=== PATIENT | female | born 1935 | race Caucasian/White ===

== ENCOUNTER 2017-07-19 21:04 | Inpatient (IN) | payer MEDICARE, MEDICAID ==
[2017-07-20 00:08] LABS: ABSOLUTE LYMPHOCYTES (AUTO) 0.7 10^3/uL (0.5-4.7); ABSOLUTE MONOCYTES (AUTO) 0.1 10^3/uL (0.1-1.4); ABSOLUTE NEUT (AUTO) 7.2 10^3/uL (1.7-8.2); BASOPHILS % (AUTO) 0.5 % (0-2); EOSINOPHILS % (AUTO) 0.1 % (0-6); HEMATOCRIT 44.5 % (36.0-47.0); HEMOGLOBIN 15.3 g/dL (12.0-15.5); HGB HCT DIFFERENCE 1.4; LYMPHOCYTES % (AUTO) 8.5 % (13-45); MEAN CORPUSCULAR HEMOGLOBIN 30.8 pg (27.0-33.4); MEAN CORPUSCULAR HGB CONC 34.4 g/dL (32.0-36.0); MEAN CORPUSCULAR VOLUME 90 fl (80-97); MONOCYTES % (AUTO) 1.8 % (3-13); RED BLOOD COUNT 4.96 10^6/uL (3.72-5.28); SEGMENTED NEUTROPHILS % (AUTO) 89.1 % (42-78); WHITE BLOOD COUNT 8.1 10^3/uL (4.0-10.5)
[2017-07-20 00:21] LABS: ALANINE AMINOTRANSFERASE 160 U/L (9-52); ALBUMIN 4.6 g/dL (3.5-5.0); ALKALINE PHOSPHATASE 111 U/L (38-126); ANION GAP 14 (5-19); ASPARTATE AMINO TRANSFERASE 321 U/L (14-36); BILIRUBIN,DIRECT 0.8 mg/dL (0.0-0.4); BILIRUBIN,TOTAL 1.4 mg/dL (0.2-1.3); BLOOD UREA NITROGEN 25 mg/dL (7-20); CALCIUM 9.8 mg/dL (8.4-10.2); CARBON DIOXIDE 27 mmol/L (22-30); CHLORIDE 107 mmol/L (98-107); CREATINE KINASE 57 U/L (30-135); GLUCOSE 128 mg/dL (75-110); POTASSIUM 3.7 mmol/L (3.6-5.0); SODIUM 148.3 mmol/L (137-145); TOTAL PROTEIN 8.4 g/dL (6.3-8.2)
[2017-07-20 00:41] LABS: LIPASE 8393.8 U/L (23-300)
[2017-07-20] MEDS ORDERED: NORMAL SALINE 1000 ML 1,000 ML IV ONE (01:09)
[2017-07-20] MEDS ORDERED: MORPHINE SULFATE 10 MG/ML INJ IV PRN (01:09)
[2017-07-20] MEDS ORDERED: ONDANSETRON HCL INJ/PF 4 MG/2 ML SDV IV ONE (01:09)
--- NOTE | 2017-07-20 01:14 | ER Document Report ---
ED General - General Chief Complaint: Abdominal Pain Stated Complaint: STOMACH PAIN Time Seen by Provider: 07/19/17 23:42 Notes: Patient is an 81-year-old female with a past medical history of diabetes, hypertension, hyperlipidemia, and a known history of symptomatic cholelithiasis who presents with progressively worsening right upper quadrant and epigastric abdominal pain for the past 48 hours. She reports that she has had intermittent pain is been similar to today's presentation for the past several months but never to this degree of severity. She describes the pain as being a severe, constant, throbbing pain. She notes that any attempt eating worsens the pain. She has not been able to try anything to improve the pain. She notes multiple episodes associated of associated nonbilious vomiting. She has not had diarrhea. No chest pain or shortness of breath. She has seen a primary care doctor at the [facility] regarding this concern and been diagnosed as having symptomatically lithiasis but has refused surgery. The history and physical exam was obtained by the provider using Ukrainian. A formal hospital wet process head miller was offered to the patient and any family at the bedside at the beginning of the encounter and was declined. - Related Data Allergies/Adverse Reactions: No Known Allergies Allergy (Unverified 07/20/17 02:39) Past Medical History - General Information source: Patient - Social History Smoking Status: Never Smoker Frequency of alcohol use: None Drug Abuse: None Lives with: Family Family History: Reviewed & Not Pertinent Review of Systems - Review of Systems Notes: Constitutional: Negative for fever. HENT: Negative for sore throat. Eyes: Negative for visual changes. Cardiovascular: Negative for chest pain. Respiratory: Negative for shortness of breath. Gastrointestinal: Positive for abdominal pain and vomiting Genitourinary: Negative for dysuria. Musculoskeletal: Negative for back pain. Skin: Negative for rash. Neurological: Negative for headaches, weakness or numbness. 10 point ROS negative except as marked above and in HPI. Physical Exam - Vital signs Vitals: Temp Pulse Resp BP Pulse Ox 97.6 F 71 20 203/72 H 98 07/19/17 21:22 07/19/17 21:22 07/19/17 21:22 07/19/17 21:22 07/19/17 21:22 Interpretation: Hypertensive Notes: PHYSICAL EXAMINATION: GENERAL: Appears uncomfortable but in no acute distress HEAD: Atraumatic, normocephalic. EYES: Pupils equal round and reactive to light, extraocular movements intact, sclera anicteric, conjunctiva are normal. ENT: nares patent, oropharynx clear without exudates. Moderately dry mucous membranes. NECK: Normal range of motion, supple without lymphadenopathy LUNGS: Breath sounds clear to auscultation bilaterally and equal. No wheezes rales or rhonchi. HEART: Regular rate and rhythm without murmurs ABDOMEN: Soft, severe pain on palpation of the epigastrium and right upper quadrant otherwise no localized tenderness. No rebound or guarding. EXTREMITIES: Normal range of motion, no pitting or edema. No cyanosis. NEUROLOGICAL: No focal neurological deficits. Moves all extremities spontaneously and on command. PSYCH: Normal mood, normal affect. SKIN: Warm, Dry, normal turgor, no rashes or lesions noted. Course - Re-evaluation Re-evalutation: 07/20/17 01:14 Labs and history are most consistent with a gallstone induced pancreatitis, likely an acute cholecystitis in association with this given exam and history. Patient's labs do not at this time medially suggest an acute choledocholithiasis as there is no elevation of the bilirubin although there is a mild transaminitis which also can be seen in association with cholecystitis and pancreatitis. Awaiting formal ultrasound and then will discuss with the surgeon on-call. 07/20/17 02:17 The ultrasound does not demonstrate any evidence of an acute cholecystitis, no significant common bile duct dilation. Will consult with hospitalist for admission and the surgeon for consultation of cholecystectomy given the pancreatitis is likely gallstone induced. 07/20/17 02:47 I have spoken with Dr. Botello who is requested that Dr. Kevin the surgeon primarily admit the patient. Dr. Kevin has agreed. I have informed the patient and her family at the bedside of our findings tonight and she is agreed to admission - Vital Signs Vital signs: Temp Pulse Resp BP Pulse Ox 97.6 F 71 20 156/84 H 98 07/19/17 21:22 07/19/17 21:22 07/19/17 21:22 07/19/17 23:49 07/19/17 21:22 - Laboratory Result Diagrams: 07/19/17 23:56 07/19/17 23:56 Laboratory results interpreted by me: 07/19/17 07/19/17 07/20/17 23:56 23:56 00:49 Seg Neutrophils % 89.1 H Lymphocytes % 8.5 L Monocytes % 1.8 L Sodium 148.3 H BUN 25 H Glucose 128 H Total Bilirubin 1.4 H Direct Bilirubin 0.8 H AST 321 H ALT 160 H Total Protein 8.4 H Lipase 8393.8 H Urine Protein 30 H Urine Urobilinogen 4.0 H - Diagnostic Test Radiology reviewed: Reports reviewed Discharge - Discharge Clinical Impression: Pancreatitis due to biliary obstruction Qualifiers: Chronicity: acute Acute pancreatitis complication: unspecified Qualified Code(s ): K85.10 - Biliary acute pancreatitis without necrosis or infection Vomiting Qualifiers: Vomiting type: unspecified Vomiting Intractability: non-intractable Nausea presence: with nausea Qualified Code(s): R11.2 - Nausea with vomiting, unspecified Condition: Fair Disposition: ADMITTED INPATIENT Admitting Provider: Surgicalist - Dorita Unit Admitted: Surgical Floor
[2017-07-20 01:21] LABS: APPEARANCE,URINE CLEAR; BILIRUBIN,URINE NEGATIVE (NEGATIVE); CALCIUM OXALATE CRYSTALS,URINE FEW /HPF; GLUCOSE, URINE NEGATIVE (NEGATIVE); KETONES,URINE NEGATIVE (NEGATIVE); LEUKOCYTE ESTERASE,URINE NEGATIVE (NEGATIVE); NITRITE,URINE NEGATIVE (NEGATIVE); PROTEIN,URINE 30 mg/dL (NEGATIVE); URINE SPECIFIC GRAVITY 1.027
--- NOTE | 2017-07-20 02:14 | RADIOLOGY REPORT (SQ) ---
EXAM DESCRIPTION: U/S ABDOMEN LIMITED W/O DOP CLINICAL HISTORY: 81 years, Female, Eval cholecystitis COMPARISON: None. LIMITATIONS: None. FINDINGS: Cholelithiasis, negative sonographic Sanches's test, 0.5 cm thickness of gallbladder wall, no significant pericholecystic fluid. 1.1 cm common duct dilation; no evidence of intrahepatic ductal dilation. Pancreatic tail, distal aorta, liver partially obscured. Remaining liver, pancreas, 9.1 cm right kidney appear unremarkable. IMPRESSION: No acute findings. Cholelithiasis and 0.5 cm gallbladder wall thickness; negative sonographic Sanches's test. Nonspecific 1.1 cm common bile duct diameter; no evidence of intrahepatic ductal dilation. 2011 [employer]- All Rights Reserved
[2017-07-20] MEDS ORDERED: GLUCAGON,HUMAN RECOMB 1 MG INJ IM PRN (02:43)
[2017-07-20] MEDS ORDERED: INSULIN LISPRO 100 UNIT/ML 3 ML VIAL SUBCUT PRN (02:43)
[2017-07-20] MEDS ORDERED: DEXTROSE 40% GEL 15 GM TUBE PO PRN ×2 (02:43)
[2017-07-20] MEDS ORDERED: DEXTROSE 50%-WATER 25 GM/50 ML DISP.SYRIN IV PRN ×2 (02:43)
[2017-07-20] MEDS ORDERED: HYDRALAZINE HCL INJ/PF 20 MG/1 ML SDV IV PRN (02:44)
[2017-07-20] MEDS ORDERED: ACETAMINOPHEN 325 MG TABLET PO ONE (04:03)
--- NOTE | 2017-07-20 04:21 | PDOC H&P ---
History of Present Illness Admission Date/PCP: 07/20/17 03:39 Patient complains of: abdominal pains with N/V. History of Present Illness: ALPHONSE MALDONADO is a 81 year old female Known to have gallstone and apparently refused surgery in the past. C/O wose RUQ pains associated with N/V and chills past 48 hrs. Past Medical History Cardiac Medical History: Reports: Hyperlipidema, Hypertension Pulmonary Medical History: Reports: Chronic Obstructive Pulmonary Disease (COPD) Endocrine Medical History: Reports: Diabetes Mellitus Type 2 GI Medical History: Reports: Gastroesophageal Reflux Disease Musculoskeltal Medical History: Reports: Arthritis Past Surgical History Past Surgical History: Reports: Orthopedic Surgery Social History Lives with: Family Smoking Status: Never Smoker Family History Family History: Reviewed & Not Pertinent Parental Family History Reviewed: No Children Family History Reviewed: Yes - daughter had cholecystectomy Sibling(s) Family History Reviewed.: No Medication/Allergy Allergies/Adverse Reactions: No Known Allergies Allergy (Unverified 07/20/17 02:39) Review of Systems Constitutional: PRESENT: chills Eyes: PRESENT: other - no visual or hearing changes Nose, Mouth, and Throat: PRESENT: other - no headaches Cardiovascular: PRESENT: other - no chest pains Respiratory: PRESENT: other - no cough Gastrointestinal: PRESENT: abdominal pain, nausea, vomiting Genitourinary: PRESENT: other - no dysuria Musculoskeletal: PRESENT: back pain Integumentary: PRESENT: other - no rash Neurological: PRESENT: other - no seizures Psychiatric: PRESENT: other - no anxiety Endocrine: PRESENT: other - no polyuria Hematologic/Lymphatic: PRESENT: other - no easy bruisability Physical Exam Vital Signs: Temp Pulse Resp BP Pulse Ox 97.6 F 71 20 156/84 H 98 07/19/17 21:22 07/19/17 21:22 07/19/17 21:22 07/19/17 23:49 07/19/17 21:22 General appearance: PRESENT: mild distress Head exam: PRESENT: atraumatic Eye exam: PRESENT: conjunctiva pink Mouth exam: PRESENT: moist, tongue midline Neck exam: PRESENT: full ROM Respiratory exam: PRESENT: clear to auscultation michael Cardiovascular exam: PRESENT: RRR Pulses: PRESENT: normal radial pulses Vascular exam: PRESENT: normal capillary refill GI/Abdominal exam: PRESENT: soft, tenderness - RUQ Rectal exam: PRESENT: deferred Extremities exam: PRESENT: full ROM Musculoskeletal exam: PRESENT: ambulatory Neurological exam: PRESENT: alert, oriented to person, oriented to place, oriented to time, oriented to situation Psychiatric exam: PRESENT: appropriate affect Skin exam: PRESENT: normal color, warm Results Impressions: Abdomen Ultrasound 07/20/17 00:07 IMPRESSION: No acute findings. Cholelithiasis and 0.5 cm gallbladder wall thickness; negative sonographic Sanches's test. Nonspecific 1.1 cm common bile duct diameter; no evidence of intrahepatic ductal dilation. 2010 [employer]- All Rights Reserved Assessment & Plan - Diagnosis (1) Cholelithiasis Qualifiers: Cholelithiasis location: gallbladder Is this a current diagnosis for this admission?: Yes - Time Time Spent: 30 to 50 Minutes - Inpatient Certification Medical Necessity: Need For IV Fluids, Need for Pain Control, Need for IV Antibiotics, Need for Surgery - Plan Summary Plan Summary: Keep NPO. IV antibiotics Hydrate Medical mx c/o Hospitalist Monitor LFTs and lipase and if trending down will need lap mickey with intra-op cholangiogram
[2017-07-20] MEDS ORDERED: ONDANSETRON HCL INJ/PF 4 MG/2 ML SDV IV PRN (04:22)
[2017-07-20] MEDS ORDERED: HYDROMORPHONE HCL INJ/PF 2 MG/ML AMPULE IV PRN (04:25)
[2017-07-20] MEDS ORDERED: PIPERACILLIN/TAZOBACTAM 3.375 GM VIAL IV PRN (05:02)
[2017-07-20] MEDS ORDERED: PIPERACILLIN/TAZOBACTAM 3.375 GM VIAL IV SCH (06:00)
[2017-07-20] MEDS ORDERED: INFLUENZA ADLT QUAD (36MOS+) 2017-18 VAC 0.5 ML SYR IM PRN (07:17)
--- NOTE | 2017-07-20 07:49 | EKG REPORT ---
SEVERITY:- ABNORMAL ECG - SINUS RHYTHM POSTERIOR INFARCT : Confirmed by: Parker Contreras MD 20-Jul-2017 07:48:55
[2017-07-20] MEDS ORDERED: PIPERACILLIN SODIUM/TAZOBACTAM 3.375 GM in NORMAL SALINE 100 ML IV ONE (08:00)
[2017-07-20] MEDS: HYDROMORPHONE HCL INJ/PF 2 MG/ML AMPULE IV PRN (12:38)
[2017-07-20] MEDS: PIPERACILLIN SODIUM/TAZOBACTAM 3.375 GM in NORMAL SALINE 100 ML IV SCH ×3 (14:54→21:27)
[2017-07-20] MEDS: NORMAL SALINE 1000 ML 1,000 ML IV PRN (21:27)
[2017-07-21 05:11] LABS: ABSOLUTE LYMPHOCYTES (AUTO) 0.9 10^3/uL (0.5-4.7); ABSOLUTE MONOCYTES (AUTO) 0.5 10^3/uL (0.1-1.4); ABSOLUTE NEUT (AUTO) 8.1 10^3/uL (1.7-8.2); BASOPHILS % (AUTO) 0.4 % (0-2); EOSINOPHILS % (AUTO) 0.4 % (0-6); HEMATOCRIT 37.1 % (36.0-47.0); LYMPHOCYTES % (AUTO) 9.8 % (13-45); MEAN CORPUSCULAR HGB CONC 34.2 g/dL (32.0-36.0); MEAN CORPUSCULAR VOLUME 91 fl (80-97); MONOCYTES % (AUTO) 4.8 % (3-13); RED BLOOD COUNT 4.09 10^6/uL (3.72-5.28); RED CELL DISTRIBUTION WIDTH 13.2 % (11.5-14.0); SEGMENTED NEUTROPHILS % (AUTO) 84.6 % (42-78); WHITE BLOOD COUNT 9.6 10^3/uL (4.0-10.5)
[2017-07-21 05:18] LABS: HEMOGLOBIN 12.7 g/dL (12.0-15.5)
[2017-07-21] MEDS: PIPERACILLIN SODIUM/TAZOBACTAM 3.375 GM in NORMAL SALINE 100 ML IV SCH ×3 (05:31→22:10)
[2017-07-21] MEDS: NORMAL SALINE 1000 ML 1,000 ML IV PRN ×3 (05:31→18:05)
[2017-07-21 05:53] LABS: LIPASE 5982.2 U/L (23-300)
[2017-07-21 05:54] LABS: ALANINE AMINOTRANSFERASE 233 U/L (9-52); ALBUMIN 3.2 g/dL (3.5-5.0); ALKALINE PHOSPHATASE 104 U/L (38-126); ANION GAP 11 (5-19); ASPARTATE AMINO TRANSFERASE 173 U/L (14-36); BLOOD UREA NITROGEN 16 mg/dL (7-20); CALCIUM 8.5 mg/dL (8.4-10.2); CARBON DIOXIDE 22 mmol/L (22-30); CHLORIDE 112 mmol/L (98-107); CREATININE RESULT 0.58 mg/dL (0.52-1.25); GLUCOSE 108 mg/dL (75-110); POTASSIUM 3.4 mmol/L (3.6-5.0); SODIUM 145.4 mmol/L (137-145); TOTAL PROTEIN 6.2 g/dL (6.3-8.2)
[2017-07-21] MEDS ORDERED: MIDAZOLAM 2 MG/2 ML INJ ONE ×2 (15:53→15:54)
[2017-07-21] MEDS ORDERED: NALOXONE HCL INJ/PF 0.4 MG/1 ML SDV ONE (15:53)
[2017-07-21] MEDS ORDERED: FLUMAZENIL INJ 0.5 MG/5 ML VIAL ONE (15:54)
[2017-07-21] MEDS ORDERED: EPINEPHRINE INJ 1 MG/10 ML DISP.SYRIN ONE (15:54)
[2017-07-21] MEDS ORDERED: FENTANYL CITRATE INJ/PF 100 MCG/2 ML AMPUL ONE (15:54)
[2017-07-21] MEDS ORDERED: GLUCAGON,HUMAN RECOMB 1 MG INJ ONE (15:54)
--- NOTE | 2017-07-21 16:24 | PDOC PROGRESS REPORT ---
Subjective Progress Note for:: 07/21/17 Reason For Visit: PANCREATITIS Patient has no complaints this morning. She is speaking through her daughter as per diem interpreter. She only speaks Eritrean. Physical Exam Vital Signs: Temp Pulse Resp BP Pulse Ox 99.1 F 90 20 160/68 H 98 07/21/17 14:38 07/21/17 14:38 07/21/17 14:38 07/21/17 14:38 07/21/17 14:38 Intake & Output 07/20/17 07/21/17 07/22/17 06:59 06:59 06:59 Intake Total 0 1850 Output Total 0 Balance 0 1850 Weight 75 kg General appearance: PRESENT: no acute distress GI/Abdominal exam: PRESENT: other - Tender right upper quadrant with guarding. Abdomen is not rigid Results Laboratory Results: 07/21/17 03:44 07/21/17 03:44 07/21/17 07/21/17 03:44 03:44 WBC 9.6 RBC 4.09 Hgb 12.7 D Hct 37.1 MCV 91 MCH 31.0 MCHC 34.2 RDW 13.2 Plt Count 141 L Seg Neutrophils % 84.6 H Lymphocytes % 9.8 L Monocytes % 4.8 Eosinophils % 0.4 Basophils % 0.4 Absolute Neutrophils 8.1 Absolute Lymphocytes 0.9 Absolute Monocytes 0.5 Absolute Eosinophils 0.0 Absolute Basophils 0.0 Sodium 145.4 H Potassium 3.4 L Chloride 112 H Carbon Dioxide 22 Anion Gap 11 BUN 16 Creatinine 0.58 Est GFR ( Amer) > 60 Est GFR (Non-Af Amer) > 60 Glucose 108 Calcium 8.5 Total Bilirubin 5.0 H AST 173 H ALT 233 H Alkaline Phosphatase 104 Total Protein 6.2 L Albumin 3.2 L Lipase 5982.2 H Impressions: Abdomen Ultrasound 07/20/17 00:07 IMPRESSION: No acute findings. Cholelithiasis and 0.5 cm gallbladder wall thickness; negative sonographic Sanches's test. Nonspecific 1.1 cm common bile duct diameter; no evidence of intrahepatic ductal dilation. 2010 [employer]- All Rights Reserved Assessment & Plan - Diagnosis (1) Pancreatitis due to biliary obstruction Qualifiers: Chronicity: acute Acute pancreatitis complication: unspecified Qualified Code(s): K85.10 - Biliary acute pancreatitis without necrosis or infection Is this a current diagnosis for this admission?: Yes Plan: Patient admitted with gallstone pancreatitis. Patient's liver function studies have bumped up with a total bilirubin now at 5. The bile duct was interpreted as enlarged 1.1 cm on ultrasonography. Lipase level remains elevated but down slightly to 6000. Her impression is that the patient has retained common bile duct stone and needs intervention for stone extraction Recommendations: 1. Proceed with gastroenterology consultation, Dr. Reilly, spoken with this morning. Plans are for ERCP later this afternoon. 2. We will keep patient n.p.o. on IV fluids and intravenous antibiotics. Plan discussed with patient and her daughter.
--- NOTE | 2017-07-21 17:29 | PDOC CONSULTATION ---
Consultation Consult Date: 07/21/17 History of Present Illness Admission Date/PCP: 07/20/17 03:39 History of Present Illness: This is an 81-year-old patient was admitted on 07/20/2017 with recurrent abdominal pain, gallstones and pancreatitis. History was obtained through the patient's granddaughter. She has been having abdominal pain for 20 years but this became was 3 days ago. The pain has been constant with some nausea and chills. On admission her bilirubin was 1.4 with AST of 321 and ALT of 160. Her lipase was 8300. Today her bilirubin has increased to 5 and the lipase is still 6000. Her ultrasound showed gallstones and a 1 cm common bile duct Past Medical History Cardiac Medical History: Reports: Hyperlipidema, Hypertension Pulmonary Medical History: Reports: Chronic Obstructive Pulmonary Disease (COPD) Neurological Medical History: Denies: Seizures Endocrine Medical History: Reports: Diabetes Mellitus Type 2 GI Medical History: Reports: Gastroesophageal Reflux Disease Musculoskeltal Medical History: Reports: Arthritis Past Surgical History Past Surgical History: Reports: Orthopedic Surgery Denies: Hysterectomy Social History Lives with: Family Smoking Status: Never Smoker Frequency of Alcohol Use: None Hx Recreational Drug Use: No Drugs: None Hx Prescription Drug Abuse: No - Advance Directive Resuscitation Status: Full Code Family History Family History: Reviewed & Not Pertinent Parental Family History Reviewed: No Children Family History Reviewed: NA Sibling(s) Family History Reviewed.: NA Medication/Allergy Home Medications: Atorvastatin Calcium [Lipitor 40 mg Tablet] 40 mg PO QHS 07/20/17 Calcium Carbonate/Vitamin D3 [Calcium 600 + Vit D Tablet] 1 tab PO DAILY Insulin Glargine,Hum.rec.anlog [Lantus Insulin Inj 300 Unit/3 ml Pen] 15 unit SUBCUT QHS 07/20/17 Lisinopril/Hydrochlorothiazide [Lisinopril-Hctz 20-12.5 mg Tab] 1 tab PO DAILY 07/20/17 Sitagliptin Phos/Metformin HCl [Janumet Xr 100-1,000 mg Tablet] 1 tab PO DAILY 07/20/17 Allergies/Adverse Reactions: No Known Allergies Allergy (Unverified 07/20/17 02:39) Review of Systems All systems: reviewed and no additional remarkable complaints except as stated Physical Exam Vital Signs: Temp Pulse Resp BP Pulse Ox 98.4 F 98 15 164/75 H 95 07/21/17 16:15 07/21/17 17:15 07/21/17 17:15 07/21/17 17:15 07/21/17 17:15 Intake & Output 07/20/17 07/21/17 07/22/17 06:59 06:59 06:59 Intake Total 0 1850 400 Output Total 0 Balance 0 1850 400 Weight 75 kg Exam: General: Patient is alert and looks well. HEENT: There is no pallor but she is jaundiced. PERRLA. Oropharynx normal Respiratory: No chest deformity. No respiratory distress. Chest wall palpitation was unremarkable. Breath sounds were normal Cardiovascular: Heart sounds 1 and 2 normal with no murmurs. Abdominal: Not distended. Soft and nontender. Liver and spleen not palpable. No ascites demonstrated. Bowel sounds active. Rectal examination was deferred. Extremities: No edema Neurological: Alert and oriented x4. Grossly nonfocal. Normal speech Skin: No significant rash Psychological: Normal affect Results Laboratory Results: 07/21/17 03:44 07/21/17 03:44 07/21/17 07/21/17 03:44 03:44 WBC 9.6 RBC 4.09 Hgb 12.7 D Hct 37.1 MCV 91 MCH 31.0 MCHC 34.2 RDW 13.2 Plt Count 141 L Seg Neutrophils % 84.6 H Lymphocytes % 9.8 L Monocytes % 4.8 Eosinophils % 0.4 Basophils % 0.4 Absolute Neutrophils 8.1 Absolute Lymphocytes 0.9 Absolute Monocytes 0.5 Absolute Eosinophils 0.0 Absolute Basophils 0.0 Sodium 145.4 H Potassium 3.4 L Chloride 112 H Carbon Dioxide 22 Anion Gap 11 BUN 16 Creatinine 0.58 Est GFR ( Amer) > 60 Est GFR (Non-Af Amer) > 60 Glucose 108 Calcium 8.5 Total Bilirubin 5.0 H AST 173 H ALT 233 H Alkaline Phosphatase 104 Total Protein 6.2 L Albumin 3.2 L Lipase 5982.2 H Impressions: Abdomen Ultrasound 07/20/17 00:07 IMPRESSION: No acute findings. Cholelithiasis and 0.5 cm gallbladder wall thickness; negative sonographic Sanches's test. Nonspecific 1.1 cm common bile duct diameter; no evidence of intrahepatic ductal dilation. 2010 [employer]- All Rights Reserved Assessment & Plan - Diagnosis (1) Abnormal contrast radiography of biliary tree Is this a current diagnosis for this admission?: Yes Plan: She has gallstones, pancreatitis and dilated biliary ducts suggestive of choledocholithiasis. However LFTs has increased since admission suggesting an impacted stone. The need for an ERCP including the risks and benefits were explained to the patient through her granddaughter. She will undergo a cholecystectomy thereafter. (2) Jaundice Is this a current diagnosis for this admission?: Yes (3) Abnormal liver function test Is this a current diagnosis for this admission?: Yes (4) Cholelithiasis Qualifiers: Cholelithiasis location: gallbladder Is this a current diagnosis for this admission?: Yes (5) Pancreatitis due to biliary obstruction Qualifiers: Chronicity: acute Acute pancreatitis complication: unspecified Qualified Code(s): K85.10 - Biliary acute pancreatitis without necrosis or infection Is this a current diagnosis for this admission?: Yes
--- NOTE | 2017-07-21 17:32 | Operative Report ---
Operative Report DATE OF SURGERY: 07/21/17 Operative Report: Pre-op diagnosis: Gallstone pancreatitis and dilated biliary ducts Post-op diagnosis: 1. Common bile duct stones 2. Dilated intra-and extrahepatic ducts Surgery: ERCP with sphincterotomy and balloon stone extraction, and epinephrine injection Medications: Versed 4mg Fentanyl 100mcg IV push Tissue removed: None Procedure: After informed consent obtained from patient, the throat was sprayed with Hurricane and conscious sedation was achieved. The ERCP endoscope was then inserted into the esophagus blindly and advanced into the stomach. The duodenum was entered and the ampulla was identified. Using the triple-lumen sphincterotomy catheter the common bile duct was freely cannulated. A cholangiogram was obtained which showed possible filling defect in the distal common bile duct. The common bile duct and intrahepatic ducts did appear dilated. A good sized sphincterotomy was then performed using the endocut mode. The catheter was removed over the guidewire before a 9-12 mm balloon catheter was inserted. The balloon was inflated to 12 mm in the proximal common bile duct and pulled down the duct. 2 5-6mm yellow stones were extracted. The duct was swept one more time. A balloon occlusion cholangiogram was normal. The pancreatic duct was intentionally not cannulated. There was some bleeding post sphincterotomy controlled by injecting epinephrine 1 in 10,000. Patient tolerated procedure well. Findings Common bile duct: Dilated with 2 small stones Intrahepatic ducts: Dilated Pancreatic duct: Not cannulated Plan: Follow liver function tests. Proceed with cholecystectomy OPERATION: .
[2017-07-21] MEDS: POTASSI CL 20 MEQ/50 ML RIDER 20 MEQ/50 ML RTUPB IV SCH ×3 (17:59→22:11)
--- NOTE | 2017-07-21 18:44 | RADIOLOGY REPORT (SQ) ---
EXAM DESCRIPTION: NO CHG FLUORO; ENDO CATH/BILIARY DUCT COMPLETED DATE/TIME: 07/21/2017 5:57 pm REASON FOR STUDY: ERCP COMPARISON: None. FLUOROSCOPY TIME: 2.4 minutes. 2 images saved to PACS. TECHNIQUE: Intra-operative images acquired during surgical procedure to evaluate progress. NUMBER OF IMAGES: 2 images. LIMITATIONS: None. FINDINGS: Images acquired during ERCP. IMPRESSION: IMAGE(S) OBTAINED DURING PROCEDURE. COMMENT: Quality ID [id number]: Final reports for procedures using fluoroscopy that document radiation exp osure indices, or exposure time and number of fluorographic images (if radiation exposure indices are not available) Please consult full operative report of the attending physician for description of the procedure. TECHNICAL DOCUMENTATION: JOB ID: [id number] [employer]- All Rights Reserved
--- NOTE | 2017-07-21 18:44 | RADIOLOGY REPORT (SQ) ---
EXAM DESCRIPTION: NO CHG FLUORO; ENDO CATH/BILIARY DUCT COMPLETED DATE/TIME: 07/21/2017 5:57 pm REASON FOR STUDY: ERCP COMPARISON: None. FLUOROSCOPY TIME: 2.4 minutes. 2 images saved to PACS. TECHNIQUE: Intra-operative images acquired during surgical procedure to evaluate progress. NUMBER OF IMAGES: 2 images. LIMITATIONS: None. FINDINGS: Images acquired during ERCP. IMPRESSION: IMAGE(S) OBTAINED DURING PROCEDURE. COMMENT: Quality ID [id number]: Final reports for procedures using fluoroscopy that document radiation exp osure indices, or exposure time and number of fluorographic images (if radiation exposure indices are not available) Please consult full operative report of the attending physician for description of the procedure. TECHNICAL DOCUMENTATION: JOB ID: [id number] [employer]- All Rights Reserved
[2017-07-22] MEDS: NORMAL SALINE 1000 ML 1,000 ML IV PRN ×2 (05:27→17:28)
[2017-07-22] MEDS: PIPERACILLIN SODIUM/TAZOBACTAM 3.375 GM in NORMAL SALINE 100 ML IV SCH ×3 (05:27→21:03)
[2017-07-22 06:06] LABS: HEMATOCRIT 36.1 % (36.0-47.0); HEMOGLOBIN 12.3 g/dL (12.0-15.5); HGB HCT DIFFERENCE 0.8; MEAN CORPUSCULAR HEMOGLOBIN 30.5 pg (27.0-33.4); MEAN CORPUSCULAR HGB CONC 34.2 g/dL (32.0-36.0); MEAN CORPUSCULAR VOLUME 89 fl (80-97); RED BLOOD COUNT 4.05 10^6/uL (3.72-5.28); RED CELL DISTRIBUTION WIDTH 13.2 % (11.5-14.0); WHITE BLOOD COUNT 6.2 10^3/uL (4.0-10.5)
[2017-07-22] MEDS: HYDROMORPHONE HCL INJ/PF 2 MG/ML AMPULE IV PRN ×4 (06:26→21:03)
[2017-07-22 06:29] LABS: ALANINE AMINOTRANSFERASE 148 U/L (9-52); ALBUMIN 3.1 g/dL (3.5-5.0); ALKALINE PHOSPHATASE 125 U/L (38-126); ANION GAP 11 (5-19); ASPARTATE AMINO TRANSFERASE 63 U/L (14-36); BILIRUBIN,DIRECT 1.1 mg/dL (0.0-0.4); BILIRUBIN,TOTAL 1.7 mg/dL (0.2-1.3); BLOOD UREA NITROGEN 13 mg/dL (7-20); CALCIUM 8.3 mg/dL (8.4-10.2); CARBON DIOXIDE 18 mmol/L (22-30); CHLORIDE 113 mmol/L (98-107); CREATININE RESULT 0.51 mg/dL (0.52-1.25); GLUCOSE 103 mg/dL (75-110); POTASSIUM 3.6 mmol/L (3.6-5.0); SODIUM 142.3 mmol/L (137-145); TOTAL PROTEIN 6.1 g/dL (6.3-8.2)
[2017-07-22] MEDS ORDERED: BUPIVACAINE HCL 0.25 % INJ/PF (2.5 MG/1 ML) 30 ML VIAL ONE (07:06)
[2017-07-22] MEDS ORDERED: PROPOFOL INJ 200 MG/20 ML VIAL IV ONE (07:38)
[2017-07-22] MEDS ORDERED: FENTANYL CITRATE INJ/PF 100 MCG/2 ML AMPUL ONE ×2 (07:38→10:19)
[2017-07-22] MEDS ORDERED: MIDAZOLAM 2 MG/2 ML INJ ONE (07:38)
[2017-07-22] MEDS ORDERED: ACETAMINOPHEN 100 ML IV ONE (07:39)
[2017-07-22] MEDS ORDERED: MORPHINE SULFATE 10 MG/ML INJ ONE (07:39)
[2017-07-22] MEDS ORDERED: MEPERIDINE HCL/PF INJ 25 MG/1 ML DISP.SYRIN IV PRN (09:00)
[2017-07-22] MEDS ORDERED: PROMETHAZINE HCL INJ 25 MG/1 ML VIAL IV PRN ×2 (09:00)
[2017-07-22] MEDS ORDERED: FENTANYL CITRATE INJ/PF 100 MCG/2 ML AMPUL IV PRN ×3 (09:00)
[2017-07-22] MEDS ORDERED: MORPHINE SULFATE 10 MG/ML INJ IV PRN (09:00)
[2017-07-22] MEDS ORDERED: DIPHENHYDRAMINE HCL 50 MG/ML VIAL IV PRN (09:00)
[2017-07-22] MEDS ORDERED: FENTANYL CITRATE INJ/PF 100 MCG/2 ML AMPUL INJ ONE (09:48)
[2017-07-22] MEDS ORDERED: HYDRALAZINE HCL INJ/PF 20 MG/1 ML SDV ONE (10:20)
[2017-07-22] MEDS ORDERED: DEXAMETHASONE SOD PHOSPHATE INJ 4 MG/1 ML VIAL ONE (14:02)
[2017-07-22] MEDS ORDERED: SUCCINYLCHOLINE CHLORIDE INJ 200 MG/10 ML VIAL ONE (14:02)
[2017-07-22] MEDS ORDERED: NEOSTIGMINE METHYLSULFATE 10 MG/10 ML VIAL ONE (14:02)
[2017-07-22] MEDS ORDERED: GLYCOPYRROLATE INJ 0.4 MG/2 ML VIAL ONE (14:02)
[2017-07-22] MEDS ORDERED: ONDANSETRON HCL INJ/PF 4 MG/2 ML SDV ONE (14:02)
[2017-07-22] MEDS ORDERED: ROCURONIUM BROMIDE INJ 50 MG/5 ML VIAL IV ONE (14:03)
--- NOTE | 2017-07-22 19:42 | OPERATIVE REPORT E ---
Operative Report NAME: ALPHONSE MALDONADO : 1935 AGE: 81Y DATE OF SURGERY: 07/22/2017 ROOM: 404 PREOPERATIVE DIAGNOSIS: Acute cholecystitis. POSTOPERATIVE DIAGNOSIS: Acute cholecystitis. OPERATION: Laparoscopic cholecystectomy. SURGEON: ERICA LOZA M.D. ANESTHESIA: General. BLOOD LOSS: Less than 20 mL. SPECIMENS: Gallbladder contents. HISTORY AND INDICATIONS: The patient was admitted with cholecystitis, bilateral stones. She had ERCP done. Needed cholecystectomy because of the inflamed gallbladder and acute cholecystitis at the same time. Explained about indications, risks, benefits, and complications including but not limited to infection, bleeding, pain, and possibility of reoperation all explained to the patient and the patient's family through Albanian translation. She was take to the operating room with informed consent. DESCRIPTION OF PROCEDURE: After adequate anesthesia, in supine position, SCD boots, was given antibiotic Zosyn continued, abdomen was cleaned and draped as a sterile field. Initial access, infraumbilical area a 12 mm trocar inserted and then 5 mm trocar inserted in the epigastric area . Findings: The gallbladder is acutely inflamed, edematous, contents. Then gallbladder neck was dissected circumferentially. The cystic artery was dissected, divided, cystic duct area. Now the cystic duct was ligated with 2 applications of Endoloop and the cystic duct was ligated. Abdominal cavity, subhepatic area, diaphragmatic area irrigated and suctioned out completely and thoroughly hemostatic. Because of positive necrotic gallbladder, drain was placed in the subhepatic area and brought out complete hemostasis, the area was closed with 0 Vicryl for the fascia, 3-0 and 4-0 for the skin. Patient tolerated procedure and taken to recovery in stable condition. DICTATING PHYSICIAN: ERICA LOZA M.D. [id number] PHY#: [id number] ID: [id number] JOB#: [id number] ACCT: [id number] cc:ERCIA LOZA M.D. > MTDD
[2017-07-23] MEDS: HYDROMORPHONE HCL INJ/PF 2 MG/ML AMPULE IV PRN ×3 (01:27→11:55)
[2017-07-23 05:57] LABS: ABSOLUTE MONOCYTES (AUTO) 0.4 10^3/uL (0.1-1.4); ABSOLUTE NEUT (AUTO) 5.5 10^3/uL (1.7-8.2); BASOPHILS % (AUTO) 0.3 % (0-2); EOSINOPHILS % (AUTO) 0.1 % (0-6); HEMOGLOBIN 12.1 g/dL (12.0-15.5); HGB HCT DIFFERENCE 0.3; LYMPHOCYTES % (AUTO) 13.9 % (13-45); MEAN CORPUSCULAR HEMOGLOBIN 30.5 pg (27.0-33.4); MEAN CORPUSCULAR HGB CONC 33.6 g/dL (32.0-36.0); MEAN CORPUSCULAR VOLUME 91 fl (80-97); MONOCYTES % (AUTO) 5.9 % (3-13); RED BLOOD COUNT 3.96 10^6/uL (3.72-5.28); RED CELL DISTRIBUTION WIDTH 13.2 % (11.5-14.0); SEGMENTED NEUTROPHILS % (AUTO) 79.8 % (42-78); WHITE BLOOD COUNT 6.9 10^3/uL (4.0-10.5)
[2017-07-23] MEDS: PIPERACILLIN SODIUM/TAZOBACTAM 3.375 GM in NORMAL SALINE 100 ML IV SCH ×2 (05:59→14:22)
[2017-07-23 06:25] LABS: ALANINE AMINOTRANSFERASE 149 U/L (9-52); ALBUMIN 3.1 g/dL (3.5-5.0); ALKALINE PHOSPHATASE 101 U/L (38-126); ANION GAP 9 (5-19); ASPARTATE AMINO TRANSFERASE 82 U/L (14-36); BILIRUBIN,DIRECT 0.6 mg/dL (0.0-0.4); BILIRUBIN,TOTAL 0.9 mg/dL (0.2-1.3); BLOOD UREA NITROGEN 15 mg/dL (7-20); CALCIUM 8.7 mg/dL (8.4-10.2); CARBON DIOXIDE 22 mmol/L (22-30); CHLORIDE 111 mmol/L (98-107); GLUCOSE 121 mg/dL (75-110); POTASSIUM 3.9 mmol/L (3.6-5.0); SODIUM 141.6 mmol/L (137-145)
[2017-07-23] MEDS: NORMAL SALINE 1000 ML 1,000 ML IV PRN (11:56)
[2017-07-23] MEDS ORDERED: HYDROCODONE/ACETAMINOPHEN 5-325 MG TABLET PO PRN (13:15)
--- NOTE | 2017-07-23 14:12 | PDOC PROGRESS REPORT ---
Subjective Progress Note for:: 07/23/17 Subjective:: feeling better tolerating diet Reason For Visit: PANCREATITIS Physical Exam Vital Signs: Temp Pulse Resp BP Pulse Ox 98.8 F 86 20 152/62 H 96 07/23/17 12:33 07/23/17 12:33 07/23/17 12:33 07/23/17 12:33 07/23/17 12:33 Intake & Output 07/22/17 07/23/17 07/24/17 06:59 06:59 06:59 Intake Total 3689 4066 Output Total 860 90 Balance 3689 3206 -90 Weight 80.8 kg GI/Abdominal exam: PRESENT: other - Abdomen - soft OSEAS drain Serous Results Laboratory Results: 07/23/17 05:40 07/23/17 05:40 07/23/17 07/23/17 05:40 05:40 WBC 6.9 RBC 3.96 Hgb 12.1 Hct 36.0 MCV 91 MCH 30.5 MCHC 33.6 RDW 13.2 Plt Count 158 Seg Neutrophils % 79.8 H Lymphocytes % 13.9 Monocytes % 5.9 Eosinophils % 0.1 Basophils % 0.3 Absolute Neutrophils 5.5 Absolute Lymphocytes 1.0 Absolute Monocytes 0.4 Absolute Eosinophils 0.0 Absolute Basophils 0.0 Sodium 141.6 Potassium 3.9 Chloride 111 H Carbon Dioxide 22 Anion Gap 9 BUN 15 Creatinine 0.60 Est GFR ( Amer) > 60 Est GFR (Non-Af Amer) > 60 Glucose 121 H Calcium 8.7 Total Bilirubin 0.9 AST 82 H ALT 149 H Alkaline Phosphatase 101 Total Protein 6.0 L Albumin 3.1 L Impressions: Abdomen Ultrasound 07/20/17 00:07 IMPRESSION: No acute findings. Cholelithiasis and 0.5 cm gallbladder wall thickness; negative sonographic Sanches's test. Nonspecific 1.1 cm common bile duct diameter; no evidence of intrahepatic ductal dilation. 2011 [employer]- All Rights Reserved Catheter Placement 07/21/17 00:00 IMPRESSION: IMAGE(S) OBTAINED DURING PROCEDURE. Fluoroscopy 07/21/17 00:00 IMPRESSION: IMAGE(S) OBTAINED DURING PROCEDURE. Assessment & Plan - Plan Summary Plan Summary: s/p lap cholecystectomy doing well Advance diet May DC home FU in surgery clinic 2 weeks
[2017-07-23 16:07] VITALS: BP 158/62
== END 2017-07-23 17:11 | disposition home or self-care (01) | DRG 418 ==
LOC: ER 21:04 → EH 07-20 03:39 → 4W 07-20 05:12 → 4N 07-20 14:31
PROVIDERS: ATTEND Colon & Rectal Surgery
PROC: 0FC98ZZ Extirpation of Matter from Common Bile Duct, Via Natural or Artificial Opening Endoscopic (ICD-10-PCS; 2017-07-21 16:30)
PROC: 0FT44ZZ Resection of Gallbladder, Percutaneous Endoscopic Approach (ICD-10-PCS; principal; 2017-07-22 08:00)
DX: K85.10 Biliary acute pancreatitis without necrosis or infection (principal); K80.00 Calculus of gallbladder with acute cholecystitis without obstruction; J44.9 Chronic obstructive pulmonary disease, unspecified; E78.5 Hyperlipidemia, unspecified; I10 Essential (primary) hypertension; E11.9 Type 2 diabetes mellitus without complications; K21.9 Gastro-esophageal reflux disease without esophagitis; M19.90 Unspecified osteoarthritis, unspecified site; Z79.899 Other long term (current) drug therapy; Z79.4 Long term (current) use of insulin
CPT/HCPCS: 36415; 43262; 43264; 74328; 76705; 790; 80048; 80053; 80076; 81001; 82550; 82962; 83690; 84484; 85025; 85027; 87040; 88304; 93005; 93010; 94799; 96361; 96374; 99285; J0131; J0171; J0330; J0360; J1100; J1170; J1610; J2250; J2270; J2310; J2405; J2543; J2704; J3010; J3480; J3490; J7030

== ENCOUNTER 2020-02-29 21:41 | Inpatient (IN) | payer MEDICARE, MEDICAID ==
[2020-02-29] MEDS ORDERED: DOPAMINE HCL/DEXTROSE 5%-WATER 800 MG/250 ML RTUINJ IV PRN (21:54)
[2020-02-29] MEDS ORDERED: PIPERACILLIN/TAZOBACTAM 3.375 GM VIAL IV ONE (21:56)
--- NOTE | 2020-02-29 22:10 | ER Document Report ---
ED Respiratory Problem - General Stated Complaint: RESPIRATORY ISSUES Time Seen by Provider: 02/29/20 21:54 Mode of Arrival: Medic Information source: Relative - Granddaughter, Emergency Med Personnel Notes: 84-year-old woman presents to the emergency department with a history of seen [facility] emergency department diagnosed with a pneumonia, apparently COVID swab was performed and she was made a person of interest. EMS was called to the home tonight due to respiratory distress. Patient was found t o be very dyspneic, tripoding, nebulizer treatment was given and the patient was placed on CPAP, she continued to be in distress and appeared to be tiring, the patient was intubated. Patient was given ketamine 160 mg, 120 mg and rocuronium 160 mg. She is brought to the emergency department by EMS for bag valve ventilation being performed. Patient does not speak Cook Islander. TRAVEL OUTSIDE OF THE [place] IN LAST 30 DAYS: No - Related Data Allergies/Adverse Reactions: No Known Allergies Allergy (Unverified 07/20/17 02:39) Past Medical History - Social History Smoking Status: Never Smoker Family History: Reviewed & Not Pertinent - Past Medical History Cardiac Medical History: Reports: Hx Hypercholesterolemia, Hx Hypertension Pulmonary Medical History: Reports: Hx COPD Neurological Medical History: Denies: Hx Seizures Endocrine Medical History: Reports: Hx Diabetes Mellitus Type 2 Renal/ Medical History: Denies: Hx Peritoneal Dialysis GI Medical History: Reports: Hx Gastroesophageal Reflux Disease Musculoskeletal Medical History: Reports Hx Arthritis Past Surgical History: Reports: Hx Orthopedic Surgery. Denies: Hx Hysterectomy Review of Systems - Review of Systems -: Yes ROS unobtainable due to patient's medical condition - Patient is intuba rayna Physical Exam - Vital signs Vitals: Resp Pulse Ox 12 89 L 02/29/20 21:47 02/29/20 21:47 - Notes Notes: PHYSICAL EXAMINATION: Physical Exam: General: Frail elderly female with ET tube and bag valve ventilation being performed. HEENT: NC/AT, pupils equal round and reactive to light, MM moist,nares, neck supple Lungs: clear, no wheezing, no rales no rhonchi CVS: Tachycardic rate and rhythm no murmur gallop or rub Abdomen: Soft, active, nontender, no masses, no hepatosplenomegaly Ext: No edema, clubbing or cyanosis. Neuro: Obtunded intubated, no response to pain Skin: Intact no open lesions, no rash Course - Re-evaluation Re-evalutation: 03/01/20 00:20 Patient presents with respiratory failure, hypercapnic respiratory acidosis, chest x-ray reveals bilateral infiltrates, apparently person of interest, coronavirus test was done on 02/28/2020 at [facility]. The granddaughter describes a rapid decline with a complaint of chest tightness and heaviness and inability to take a deep breath. She states that her grandmother has never had respiratory problems, she was given an inhaler by her primary care doctor on and went to [facility] to get a chest x-ray done. She was then tested for the coronavirus. She has a history of diabetes mellitus this insulin and other medical problems. There are no advance directives, she is a full code. I have explained to the granddaughter and the patient's daughter that she is critically ill, intubated and will be cared for in the ICU. Residue Furnace Operator was contacted, states that he will see the patient in the emergency department. - Vital Signs Vital signs: Temp Pulse Resp BP Pulse Ox 98.5 F 19 180/103 H 90 L 02/29/20 22:10 02/29/20 23:41 02/29/20 23:41 03/01/20 00:40 - Laboratory Result Diagrams: 02/29/20 21:59 02/29/20 21:59 Laboratory results interpreted by me: 02/29/20 02/29/20 02/29/20 21:49 21:59 21:59 Hct 47.2 H Lymph % (Auto) 50.9 H Eos % (Auto) 7.4 H Seg Neutrophils % 36.0 L Carbonic Acid ABG pH ABG pCO2 ABG pO2 ABG HCO3 ABG Total CO2 ABG O2 Saturation Potassium 3.5 L Chloride 109 H Carbon Dioxide 20 L Glucose 350 H Lactic Acid Calcium 8.1 L NT-Pro-B Natriuret Pep 1230 H Albumin 3.4 L Urine Protein Urine Glucose (UA) 02/29/20 02/29/20 02/29/20 21:59 21:59 22:50 Hct Lymph % (Auto) Eos % (Auto) Seg Neutrophils % Carbonic Acid 2.16 H ABG pH 7.03 L* ABG pCO2 71.8 H* ABG pO2 76.6 L ABG HCO3 18.3 L ABG Total CO2 20.5 L ABG O2 Saturation 87.4 L Potassium Chloride Carbon Dioxide Glucose Lactic Acid 5.9 H Calcium NT-Pro-B Natriuret Pep Albumin Urine Protein 100 H Urine Glucose (UA) >=500 H - Diagnostic Test Radiology reviewed: Image reviewed, Reports reviewed Radiology results interpreted by me: 03/01/20 01:35 Chest x-ray: Right pleural effusion, bilateral infiltrates likely pneumonia? Viral pneumonia, pulmonary edema also noted as possible cause. - EKG Interpretation by Me EKG shows normal: Sinus rhythm - Sinus tachycardia, ST-T Waves - No acute ischemic findings. Rate: Tachycardia - Rate of 133, left bundle branch block, new compared to EKG from 2017. No acute ischemic findings. Telferner/QRS: LBBB Critical Care Note - Critical Care Note Total time excluding time spent on procedures (mins): 60 - Critical care time spent obtaining history from patient or surrogate, discussions with consultants, development of treatment plan with patient or surrogate, evaluation of patient's response to treatment, examination of patient, ordering and performing treatments and interventions, ordering and review of laboratory studies, re- evaluation of patient's condition, ordering and review of radiographic studies and review of old charts Discharge - Discharge Clinical Impression: Hypercapnic acidosis, Insulin dependent diabetes mellitus, Lactic acidosis Respiratory failure Qualifiers: Chronicity: acute Respiratory failure complication: hypoxia and hypercapnia Qualified Code(s): J96.01 - Acute respiratory failure with hypoxia Bilateral pneumonia Qualifiers: Pneumonia type: due to unspecified organism Lung location: unspecified part of lung Qualified Code(s): J18.9 - Pneumonia, unspecified organism Condition: Good Disposition: ADMITTED INPATIENT Admitting Provider: Vero (Residue Furnace Operator) Unit Admitted: ICU
[2020-02-29] MEDS ORDERED: NORMAL SALINE IV PRN (22:13)
[2020-02-29 22:27] LABS: ABSOLUTE BASOPHILS # (AUTO) 0.1 10^3/uL (0.0-0.2); ABSOLUTE EOSINOPHILS # (AUTO) 0.6 10^3/uL (0.0-0.6); ABSOLUTE LYMPHOCYTES (AUTO) 4.3 10^3/uL (0.5-4.7); ABSOLUTE MONOCYTES (AUTO) 0.4 10^3/uL (0.1-1.4); ABSOLUTE NEUT (AUTO) 3.1 10^3/uL (1.7-8.2); BASOPHILS % (AUTO) 1.2 % (0-2); EOSINOPHILS % (AUTO) 7.4 % (0-6); HEMATOCRIT 47.2 % (36.0-47.0); HEMOGLOBIN 15.2 g/dL (12.0-15.5); LYMPHOCYTES % (AUTO) 50.9 % (13-45); MEAN CORPUSCULAR HEMOGLOBIN 30.3 pg (27.0-33.4); MEAN CORPUSCULAR HGB CONC 32.2 g/dL (32.0-36.0); MEAN CORPUSCULAR VOLUME 94 fl (80-97); MONOCYTES % (AUTO) 4.5 % (3-13); PLATELET COUNT 267 10^3/uL (150-450); RED BLOOD COUNT 5.01 10^6/uL (3.72-5.28); RED CELL DISTRIBUTION WIDTH 13.7 % (11.5-14.0); TOTAL CELLS COUNTED % (AUTO) 100 %; WHITE BLOOD COUNT 8.5 10^3/uL (4.0-10.5)
[2020-02-29 22:28] LABS: ARTERIAL BLOOD H2CO3 2.16 mmol/L (1.05-1.35); ARTERIAL BLOOD HCO3 18.3 mmol/L (20-24); ARTERIAL BLOOD O2 SATURATION 87.4 % (94-98); ARTERIAL BLOOD PO2 76.6 mmHg (80-100); ARTERIAL BLOOD TOTAL CO2 20.5 mmol/L (21-25)
[2020-02-29 22:31] LABS: INTERNATIONAL RATION (INR) 1.08; PROTHROMBIN TIME 14.2 SEC (11.4-15.4)
[2020-02-29 22:32] LABS: ARTERIAL BLOOD FIO2 ROOM AIR
[2020-02-29 22:33] LABS: ARTERIAL BLOOD PCO2 71.8 mmHg (35-45); ARTERIAL BLOOD PH 7.03 (7.35-7.45)
[2020-02-29 22:38] LABS: ALBUMIN 3.4 g/dL (3.5-5.0); ALKALINE PHOSPHATASE 80 U/L (38-126); ANION GAP 10 (5-19); ASPARTATE AMINO TRANSFERASE 27 U/L (14-36); BILIRUBIN,TOTAL 0.3 mg/dL (0.2-1.3); BLOOD UREA NITROGEN 16 mg/dL (7-20); CALCIUM 8.1 mg/dL (8.4-10.2); CARBON DIOXIDE 20 mmol/L (22-30); CHLORIDE 109 mmol/L (98-107); GLUCOSE 350 mg/dL (75-110); POTASSIUM 3.5 mmol/L (3.6-5.0); TOTAL PROTEIN 6.4 g/dL (6.3-8.2)
--- NOTE | 2020-02-29 22:38 | RADIOLOGY REPORT (SQ) ---
CHEST X-RAY 1 VIEW on 02/29/2020 at 10:15 PM CLINICAL INDICATION: Intubated COMPARISON: None FINDINGS: ET tube tip is in the midthoracic trachea approximately 5.6 cm above the level of the aminah. Multiple wires are noted projecting over the chest. Heart is upper limits normal for size. There is a small right pleural effusion. There are bilateral interstitial and airspace opacities consistent with edema and/or pneumonia. Differential diagnosis would include viral infections. IMPRESSION: Right pleural effusion with bilateral opacities consistent with edema and/or pneumonia. Differential diagnosis would include viral infections.
[2020-02-29 23:32] LABS: APPEARANCE,URINE SLIGHTLY-CLOUDY; BILIRUBIN,URINE NEGATIVE (NEGATIVE); COLOR,URINE YELLOW; GLUCOSE, URINE >=500 mg/dL (NEGATIVE); KETONES,URINE NEGATIVE (NEGATIVE); PROTEIN,URINE 100 mg/dL (NEGATIVE); URINE SPECIFIC GRAVITY 1.014; UROBILINOGEN,URINE NEGATIVE mg/dL (<2.0)
[2020-02-29 23:34] LABS: CREATINE KINASE MB 1.48 ng/mL (<4.55); NT PRO BNP 1230 pg/mL (<450)
[2020-02-29 23:40] LABS: TROPONIN I < 0.012 ng/mL
[2020-03-01] MEDS: PROPOFOL 1,000 MG/100 ML INFUS..BTL IV PRN ×4 (00:52→20:40)
[2020-03-01] MEDS ORDERED: MIDAZOLAM 2 MG/2 ML INJ IV ONE (01:32)
[2020-03-01] MEDS ORDERED: DEXTROSE 40% GEL 15 GM TUBE PO PRN ×2 (02:00)
[2020-03-01] MEDS ORDERED: IPRATROPIUM/ALBUTEROL 0.5-2.5 MG/3 ML AMPUL NEB PRN (02:00)
[2020-03-01] MEDS ORDERED: DEXTROSE 50%-WATER 25 GM/50 ML DISP.SYRIN IV PRN ×3 (02:00→02:58)
[2020-03-01] MEDS ORDERED: GLUCAGON,HUMAN RECOMB 1 MG INJ SUBCUT PRN (02:00)
[2020-03-01] MEDS ORDERED: HEPARIN SOD (PORCINE) 5,000 UNIT/ML 1 ML VIAL SUBCUT ONE (02:15)
[2020-03-01] MEDS ORDERED: GLUCAGON,HUMAN RECOMB 1 MG INJ IM PRN (02:58)
--- NOTE | 2020-03-01 03:11 | CRITICAL CARE ADMISSION REPORT ---
HPI Date:: 03/01/20 Time:: 02:00 Reason for ICU Reason:: Respiratory failure, pneumonia Admission Date/Time & PCP: Admission Date/Time: 03/01/20 01:08 Primary Care Provider: HPI: 84-year-old female with a history of HTN who recently presented to an outside hospital emergency department and diagnosed with pneumonia. Screened for COVID at that time. Patient developed worsening shortness of breath this evening. EMS was called and she was subsequently intubated for severe respiratory distress. CXR in ED shows diffuse infiltrates consistent with a viral pattern. She is now being admitted to the intensive care unit for management of her respiratory failure. COVID-19 screen is still currently pending and patient will be placed on airborne precautions. - Diagnosis/Plan (1) Bilateral pneumonia Qualifiers: Pneumonia type: due to unspecified organism Lung location: unspecified part of lung Qualified Code(s): J18.9 - Pneumonia, unspecified organism Is this a current diagnosis for this admission?: Yes Plan: Start Cefapime and Vancomycin for broad spectrum coverage Obtain Sputum culture. FU CXR in am. (2) Respiratory failure Qualifiers: Chronicity: acute Respiratory failure complication: hypoxia and hypercapnia Qualified Code(s): J96.01 - Acute respiratory failure with hypoxia; J96.02 - Acute respiratory failure with hypercapnia Is this a current diagnosis for this admission?: Yes Plan: Continue mechanical ventilation Start broad-spectrum antibiotics for pneumonia Follow-up COVID screen results Past Medical History Cardiac Medical History: Reports: Hyperlipidema, Hypertension Neurological Medical History: Denies: Seizures Endocrine Medical History: Reports: Diabetes Mellitus Type 2 GI Medical History: Reports: Gastroesophageal Reflux Disease Musculoskeltal Medical History: Reports: Arthritis Past Surgical History Past Surgical History: Reports: Orthopedic Surgery Denies: Hysterectomy Social/Family History - Social History Smoking Status: Never Smoker Frequency of Alcohol Use: None Hx Recreational Drug Use: No Drugs: None Hx Prescription Drug Abuse: No - Medication/Allergies Home Medications: Insulin Glargine,Hum.rec.anlog [Lantus Insulin Inj 300 Unit/3 ml Pen] 15 unit SUBCUT QHS 07/20/17 Lisinopril/Hydrochlorothiazide [Lisinopril-Hctz 20-12.5 mg Tab] 1 tab PO DAILY 07/20/17 Sitagliptin Phos/Metformin HCl [Janumet Xr 100-1,000 mg Tablet] 1 tab PO DAILY 07/20/17 Allergies/Adverse Reactions: No Known Allergies Allergy (Unverified 07/20/17 02:39) Review of Systems ROS unobtainable: Due to endotracheal tube Physical Exam Vital Signs: Temp Pulse Resp BP Pulse Ox 98.5 F 19 180/103 H 90 L 02/29/20 22:10 02/29/20 23:41 02/29/20 23:41 03/01/20 00:40 Intake & Output 02/28/20 02/29/20 03/01/20 06:59 06:59 06:59 Intake Total 1 Balance 1 Weight 72.2 kg Weight/Height Weight 72.2 kg Height 5 ft 7 in General appearance: PRESENT: well-developed Head exam: PRESENT: atraumatic Eye exam: PRESENT: conjunctiva pink, EOMI, PERRLA Ear exam: PRESENT: normal external ear exam Mouth exam: PRESENT: dry mucosa, neck supple Neck exam: PRESENT: full ROM. ABSENT: JVD Respiratory exam: PRESENT: decreased breath sounds, rhonchi. ABSENT: wheezes Cardiovascular exam: PRESENT: RRR, +S1, +S2 Pulses: PRESENT: normal carotid pulses, +2 pedal pulses bilateral Vascular exam: PRESENT: normal capillary refill GI/Abdominal exam: PRESENT: hypoactive bowel sounds, soft. ABSENT: tenderness Extremities exam: ABSENT: pedal edema Musculoskeletal exam: PRESENT: normal inspection Neurological exam: PRESENT: CN II-XII grossly intact Skin exam: PRESENT: normal color, other - cool Tubes/Lines: PRESENT: Endotracheal Tube Laboratory/Radiographs Laboratory Results: 02/29/20 21:59 02/29/20 21:59 02/29/20 02/29/20 02/29/20 21:59 21:59 21:59 WBC 8.5 RBC 5.01 Hgb 15.2 Hct 47.2 H MCV 94 MCH 30.3 MCHC 32.2 RDW 13.7 Plt Count 267 Seg Neutrophils % 36.0 L Carbonic Acid HCO3/H2CO3 Ratio ABG pH ABG pCO2 ABG pO2 ABG HCO3 ABG O2 Saturation ABG Base Excess FiO2 Sodium 139.3 Potassium 3.5 L Chloride 109 H Carbon Dioxide 20 L Anion Gap 10 BUN 16 Creatinine 0.66 Est GFR ( Amer) > 60 Glucose 350 H Lactic Acid 5.9 H Calcium 8.1 L Total Bilirubin 0.3 AST 27 Alkaline Phosphatase 80 Total Protein 6.4 Albumin 3.4 L Urine Color Urine Appearance Urine pH Ur Specific [place] Urine Protein Urine Glucose (UA) Urine Ketones Urine Blood Urine RBC (Auto) 02/29/20 02/29/20 21:59 22:50 WBC RBC Hgb Hct MCV MCH MCHC RDW Plt Count Seg Neutrophils % Carbonic Acid 2.16 H HCO3/H2CO3 Ratio 8:1 ABG pH 7.03 L* ABG pCO2 71.8 H* ABG pO2 76.6 L ABG HCO3 18.3 L ABG O2 Saturation 87.4 L ABG Base Excess -14.0 FiO2 ROOM AIR Sodium Potassium Chloride Carbon Dioxide Anion Gap BUN Creatinine Est GFR ( Amer) Glucose Lactic Acid Calcium Total Bilirubin AST Alkaline Phosphatase Total Protein Albumin Urine Color YELLOW Urine Appearance SLIGHTLY-CLOUDY Urine pH 6.0 Ur Specific [place] 1.014 Urine Protein 100 H Urine Glucose (UA) >=500 H Urine Ketones NEGATIVE Urine Blood NEGATIVE Urine RBC (Auto) 4 02/29/20 02/29/20 21:49 21:59 Creatine Kinase 81 CK-MB (CK-2) 1.48 Troponin I < 0.012 NT-Pro-B Natriuret Pep 1230 H Impressions: Chest X-Ray 02/29/20 21:55 IMPRESSION: Right pleural effusion with bilateral opacities consistent with edema and/or pneumonia. Differential diagnosis would include viral infections. All labs, radiographs, diagnostic studies and EKGs were personally reviewed: Yes In addition, reports of radiographic and diagnostic studies were read: Yes Critical Time Critical Time (minutes): 65 -: The care of a critically ill patient is dynamic. This note represents a static moment in the admission process. Orders and treatments may be given simultaneously and urgently, and time is not high school admissions representative of the treatment process. This patient requires Critical Care secondary to life threatening organ or limb dysfunction. Without Critical Care services, the patient is at risk for increased mortality and morbidity.
[2020-03-01] MEDS ORDERED: VANCOMYCIN HCL 0 MG in DEXTROSE 5%-WATER 250 ML IV NR (03:15)
[2020-03-01] MEDS ORDERED: RINGERS SOLUTION,LACTATED 1,000 ML IV PRN ×3 (03:32→17:09)
[2020-03-01] MEDS ORDERED: PIPERACILLIN/TAZOBACTAM 3.375 GM VIAL IV PRN (03:36)
[2020-03-01] MEDS ORDERED: VANCOMYCIN HCL INJ 1000 MG VIAL IV PRN (03:41)
[2020-03-01] MEDS ORDERED: VANCOMYCIN HCL 1,000 MG in DEXTROSE 5%-WATER 250 ML IV ONE (03:45)
[2020-03-01] MEDS ORDERED: INSULIN REG, HUMAN 100 UNIT/ML 3 ML VIAL (PYX) SUBCUT ONE (03:45)
[2020-03-01 05:24] LABS: HEMATOCRIT 43.4 % (36.0-47.0); HEMOGLOBIN 14.5 g/dL (12.0-15.5); MEAN CORPUSCULAR HEMOGLOBIN 30.4 pg (27.0-33.4); MEAN CORPUSCULAR HGB CONC 33.3 g/dL (32.0-36.0); MEAN CORPUSCULAR VOLUME 91 fl (80-97); PLATELET COUNT 217 10^3/uL (150-450); RED BLOOD COUNT 4.76 10^6/uL (3.72-5.28); RED CELL DISTRIBUTION WIDTH 13.4 % (11.5-14.0); WHITE BLOOD COUNT 15.2 10^3/uL (4.0-10.5)
[2020-03-01 05:43] LABS: ANION GAP 10 (5-19); BLOOD UREA NITROGEN 16 mg/dL (7-20); CALCIUM 7.7 mg/dL (8.4-10.2); CARBON DIOXIDE 17 mmol/L (22-30); CHLORIDE 110 mmol/L (98-107); GLUCOSE 317 mg/dL (75-110); POTASSIUM 3.7 mmol/L (3.6-5.0)
[2020-03-01] MEDS: PIPERACILLIN SODIUM/TAZOBACTAM 3.375 GM in NORMAL SALINE 100 ML IV SCH ×3 (05:48→17:40)
[2020-03-01 08:56] LABS: ARTERIAL BLOOD BASE EXCESS -6.1 mmol/L; ARTERIAL BLOOD H2CO3 0.81 mmol/L (1.05-1.35); ARTERIAL BLOOD HCO3 16.7 mmol/L (20-24); ARTERIAL BLOOD O2 SATURATION 91.1 % (94-98); ARTERIAL BLOOD PCO2 26.9 mmHg (35-45); ARTERIAL BLOOD PH 7.41 (7.35-7.45); ARTERIAL BLOOD PO2 58.3 mmHg (80-100); ARTERIAL BLOOD TOTAL CO2 17.5 mmol/L (21-25)
[2020-03-01 08:58] LABS: ARTERIAL BLOOD FIO2 40%
--- NOTE | 2020-03-01 09:00 | RADIOLOGY REPORT (SQ) ---
EXAM DESCRIPTION: CHEST SINGLE VIEW IMAGES COMPLETED DATE/TIME: 03/01/2020 6:24 am REASON FOR STUDY: Respiratory Failure COMPARISON: 02/29/2020. EXAM PARAMETERS: NUMBER OF VIEWS: One view. TECHNIQUE: Single frontal radiographic view of the chest acquired. RADIATION DOSE: NA LIMITATIONS: None. FINDINGS: LUNGS AND PLEURA: Diffuse bilateral airspace disease and pleural effusions. Improved aera tion. MEDIASTINUM AND HILAR STRUCTURES: No masses. Contour normal. HEART AND VASCULAR STRUCTURES: Heart normal in size. Normal vasculature. BONES: No acute findings. HARDWARE: Stable endotracheal tube. Nasogastric tube with the tip in stomach. OTHER: No other significant finding. IMPRESSION: IMPROVED AERATION. TECHNICAL DOCUMENTATION: JOB ID: [id number] 2010 [employer]- All Rights Reserved Reading location - IP/workstation name: [email or web address]
[2020-03-01] MEDS: INSULIN REG, HUMAN 100 UNIT/ML 3 ML VIAL (PYX) SUBCUT SCH ×3 (12:06→20:23)
--- NOTE | 2020-03-01 12:24 | EKG REPORT ---
SEVERITY:- ABNORMAL ECG - SINUS RHYTHM LEFT BUNDLE BRANCH BLOCK : Confirmed by: Hannah Kasper MD 01-Mar-2020 12:23:45
[2020-03-01 16:23] LABS: ARTERIAL BLOOD BASE EXCESS -2.7 mmol/L; ARTERIAL BLOOD FIO2 40%; ARTERIAL BLOOD H2CO3 1.12 mmol/L (1.05-1.35); ARTERIAL BLOOD HCO3 21.9 mmol/L (20-24); ARTERIAL BLOOD PCO2 37.3 mmHg (35-45); ARTERIAL BLOOD PH 7.39 (7.35-7.45); ARTERIAL BLOOD PO2 60.4 mmHg (80-100)
[2020-03-01] MEDS: HEPARIN SOD (PORCINE) 5,000 UNIT/ML 1 ML VIAL SUBCUT SCH ×2 (16:28→21:28)
[2020-03-01] MEDS: VANCOMYCIN HCL 750 MG in DEXTROSE 5%-WATER 250 ML IV SCH (18:20)
[2020-03-02] MEDS: PIPERACILLIN SODIUM/TAZOBACTAM 3.375 GM in NORMAL SALINE 100 ML IV SCH ×5 (00:31→23:26)
[2020-03-02] MEDS ORDERED: RINGERS SOLUTION,LACTATED 500 ML IV ONE (01:22)
[2020-03-02] MEDS ORDERED: FUROSEMIDE INJ/PF 40 MG/4 ML SDV IV ONE ×2 (01:22→14:45)
[2020-03-02] MEDS: INSULIN REG, HUMAN 100 UNIT/ML 3 ML VIAL (PYX) SUBCUT SCH ×4 (02:03→22:18)
[2020-03-02] MEDS: PROPOFOL 1,000 MG/100 ML INFUS..BTL IV PRN (04:09)
[2020-03-02 04:46] LABS: HEMATOCRIT 43.8 % (36.0-47.0); HEMOGLOBIN 15.1 g/dL (12.0-15.5); MEAN CORPUSCULAR HEMOGLOBIN 30.6 pg (27.0-33.4); MEAN CORPUSCULAR HGB CONC 34.4 g/dL (32.0-36.0); MEAN CORPUSCULAR VOLUME 89 fl (80-97); PLATELET COUNT 188 10^3/uL (150-450); RED BLOOD COUNT 4.92 10^6/uL (3.72-5.28); RED CELL DISTRIBUTION WIDTH 13.4 % (11.5-14.0); WHITE BLOOD COUNT 8.7 10^3/uL (4.0-10.5)
[2020-03-02 05:11] LABS: ANION GAP 7 (5-19); BLOOD UREA NITROGEN 12 mg/dL (7-20); CALCIUM 8.6 mg/dL (8.4-10.2); CARBON DIOXIDE 24 mmol/L (22-30); CHLORIDE 106 mmol/L (98-107); GLUCOSE 188 mg/dL (75-110); POTASSIUM 3.1 mmol/L (3.6-5.0)
[2020-03-02] MEDS ORDERED: POTASSI CL 20 MEQ/50 ML RIDER 40 MEQ/100 ML RTUPB IV ONE (05:22)
[2020-03-02] MEDS ORDERED: MAGNESIUM SULFATE/D5W 2 GM/200 ML RTUPB IV ONE (05:22)
[2020-03-02] MEDS ORDERED: MORPHINE SULFATE 10 MG/ML INJ ONE (05:26)
[2020-03-02] MEDS ORDERED: NITROGLYCERIN 2% OINTMENT 1 GM PACKET ONE (05:27)
[2020-03-02] MEDS ORDERED: NITROGLYCERIN 2% OINTMENT 1 GM PACKET TP ONE (05:45)
[2020-03-02 05:54] LABS: CREATINE KINASE MB 2.73 ng/mL (<4.55)
[2020-03-02 06:00] LABS: ABSOLUTE LYMPHOCYTES# (MANUAL) 1.3 10^3/uL (0.5-4.7); ABSOLUTE MONOCYTES # (MANUAL) 0.4 10^3/uL (0.1-1.4); BASOPHILS % (MANUAL) 0 % (0-2); EOSINOPHILS % (MANUAL) 0 % (0-6); LYMPHOCYTES % (MANUAL) 15 % (13-45); MONOCYTES % (MANUAL) 5 % (3-13); SEGMENTED NEUTROPHILS % (MAN) 80 % (42-78); TOTAL CELLS COUNTED 100
[2020-03-02] MEDS ORDERED: MORPHINE SULFATE 10 MG/ML INJ IV ONE (06:00)
[2020-03-02 06:02] LABS: OVALOCYTES SLIGHT; PLATELET COMMENT ADEQUATE; POIKILOCYTOSIS SLIGHT
[2020-03-02 06:05] LABS: TROPONIN I 0.57 ng/mL
[2020-03-02] MEDS: MAGNESIUM SULFATE 1 GM/D5W 100 ML IV SCH ×2 (06:31→06:32)
[2020-03-02] MEDS: POTASSIUM CHLORIDE 20 MEQ/50 ML RTU IV SCH ×2 (06:34→09:07)
[2020-03-02] MEDS: HEPARIN SOD (PORCINE) 5,000 UNIT/ML 1 ML VIAL SUBCUT SCH ×3 (06:40→22:14)
[2020-03-02] MEDS: VANCOMYCIN HCL 750 MG in DEXTROSE 5%-WATER 250 ML IV SCH (06:44)
--- NOTE | 2020-03-02 07:23 | EKG REPORT ---
SEVERITY:- ABNORMAL ECG - SINUS RHYTHM VENTRICULAR BIGEMINY LVH WITH SECONDARY REPOLARIZATION ABNORMALITY PROBABLE ANTERIOR INFARCT, ACUTE NONSPECIFIC INTRAVENTRICULAR CONDUCTION DELAY : Confirmed by: Parker Contreras MD 02-Mar-2020 07:22:59
--- NOTE | 2020-03-02 08:20 | RADIOLOGY REPORT (SQ) ---
EXAM DESCRIPTION: CHEST SINGLE VIEW IMAGES COMPLETED DATE/TIME: 03/02/2020 6:06 am REASON FOR STUDY: Respiratory Failure COMPARISON: 03/01/2020 NUMBER OF VIEWS: One view. TECHNIQUE: Single frontal radiographic image of the chest acquired. LIMITATIONS: None. FINDINGS: LUNGS AND PLEURA: Suspect slight increase in bilateral pleural effusions. No other signif icant interval change. MEDIASTINUM AND HILAR STRUCTURES: Stable heart size and mediastinal structures. HEART AND VASCULAR STRUCTURES: Stable appearance. SUPPORT DEVICES: Appropriate location without change. BONES: No acute findings. OTHER: No other significant finding. IMPRESSION: STABLE APPEARANCE OF THE CHEST. SUPPORT DEVICES UNCHANGED. TECHNICAL DOCUMENTATION: JOB ID: [id number] 2010 [employer]- All Rights Reserved Reading location - IP/workstation name: [email or web address]
[2020-03-02] MEDS: MAGNESIUM SULFATE/D5W 1 GM/100 ML RTUPB IV SCH ×2 (09:09→11:43)
[2020-03-02 09:15] LABS: ARTERIAL BLOOD BASE EXCESS -0.2 mmol/L; ARTERIAL BLOOD FIO2 40%; ARTERIAL BLOOD H2CO3 1.14 mmol/L (1.05-1.35); ARTERIAL BLOOD O2 SATURATION 90.6 % (94-98); ARTERIAL BLOOD PCO2 37.9 mmHg (35-45); ARTERIAL BLOOD PH 7.42 (7.35-7.45); ARTERIAL BLOOD PO2 57.6 mmHg (80-100); ARTERIAL BLOOD TOTAL CO2 25.1 mmol/L (21-25)
[2020-03-02] MEDS ORDERED: AMIODARONE HCL 150 MG in DEXTROSE 5%-WATER 100 ML IV ONE (09:15)
[2020-03-02] MEDS: DEXTROSE 5%-WATER 500 ML with AMIODARONE HCL 900 MG IV PRN ×2 (09:45)
--- NOTE | 2020-03-02 12:02 | PDOC CRITICAL CARE PROG REPORT ---
General Date:: 03/02/20 ICU Day:: 2 Hospital Day:: 2 Resuscitation Status: Full Code Events in the past 12 to 24 Hours:: Extubated Review of systems relevant to events:: Pulmonary cardiac Reason for ICU Addmission:: Respiratory failure, pneumonia, intubated. - Medications: Medications reviewed and adjusted accordingly: Yes Vasopressors:: None Sedation:: None Physical Exam Vital Signs: Temp Pulse Resp BP Pulse Ox 100.2 F 95 22 H 131/83 H 91 L 03/02/20 01:55 03/02/20 10:44 03/02/20 10:44 03/02/20 10:44 03/02/20 10:44 Intake & Output 03/01/20 03/02/20 03/03/20 06:59 06:59 06:59 Intake Total 2511 1929 258 Output Total 670 2325 200 Balance 1841 -396 58 Weight 72.3 kg 74.6 kg Weight/Height Weight 74.6 kg Height 5 ft General appearance: PRESENT: no acute distress, cooperative, other - Hampered by language barrier. Head exam: PRESENT: atraumatic, normocephalic Eye exam: PRESENT: conjunctiva pink, EOMI, PERRLA. ABSENT: scleral icterus Ear exam: PRESENT: normal external ear exam Mouth exam: PRESENT: moist, tongue midline Respiratory exam: PRESENT: clear to auscultation michael. ABSENT: rales, rhonchi, wheezes Cardiovascular exam: PRESENT: RRR. ABSENT: diastolic murmur, rubs, systolic murmur GI/Abdominal exam: PRESENT: normal bowel sounds, soft. ABSENT: distended, g uarding, mass, organolmegaly, rebound, tenderness Rectal exam: PRESENT: deferred Gentrourinary exam: PRESENT: indwelling catheter Musculoskeletal exam: PRESENT: normal inspection Neurological exam: PRESENT: alert, awake, CN II-XII grossly intact, other - Seems approppriate but speaks mostly [place]ian Skin exam: PRESENT: dry, intact, warm. ABSENT: cyanosis, rash Laboratory/Radiographs Laboratory Results: 03/02/20 04:20 03/02/20 04:20 03/01/20 03/02/20 03/02/20 16:00 04:20 04:20 WBC 8.7 RBC 4.92 Hgb 15.1 Hct 43.8 MCV 89 MCH 30.6 MCHC 34.4 RDW 13.4 Plt Count 188 Seg Neutrophils % Not Reportable Carbonic Acid 1.12 HCO3/H2CO3 Ratio 19:1 ABG pH 7.39 ABG pCO2 37.3 ABG pO2 60.4 L ABG HCO3 21.9 ABG O2 Saturation 91.0 L ABG Base Excess -2.7 FiO2 40% Sodium 136.6 L Potassium 3.1 L Chloride 106 Carbon Dioxide 24 Anion Gap 7 BUN 12 Creatinine 0.57 Est GFR ( Amer) > 60 Glucose 188 H Calcium 8.6 Magnesium 1.6 03/02/20 03/02/20 04:20 08:55 WBC Cancelled RBC Cancelled Hgb Cancelled Hct Cancelled MCV Cancelled MCH Cancelled MCHC Cancelled RDW Cancelled Plt Count Cancelled Seg Neutrophils % Cancelled Carbonic Acid 1.14 HCO3/H2CO3 Ratio 21:1 ABG pH 7.42 ABG pCO2 37.9 ABG pO2 57.6 L ABG HCO3 24.0 ABG O2 Saturation 90.6 L ABG Base Excess -0.2 FiO2 40% Sodium Potassium Chloride Carbon Dioxide Anion Gap BUN Creatinine Est GFR ( Amer) Glucose Calcium Magnesium 02/29/20 02/29/20 03/01/20 21:49 21:59 05:07 Creatine Kinase 81 CK-MB (CK-2) 1.48 Troponin I < 0.012 NT-Pro-B Natriuret Pep 1230 H 3320 H 03/02/20 03/02/20 03/02/20 04:20 04:20 04:20 Creatine Kinase 157 H CK-MB (CK-2) 2.73 Troponin I 0.570 NT-Pro-B Natriuret Pep 5920 H Impressions: Chest X-Ray 03/02/20 06:00 IMPRESSION: STABLE APPEARANCE OF THE CHEST. SUPPORT DEVICES UNCHANGED. EKG: NSR, bigeminy. Possible anterior infarct. All labs, radiographs, diagnostic studies and EKGs were personally reviewed: Yes In addition, reports of radiographic and diagnostic studies were read: Yes Assessment and Plan - Diagnosis (1) AMI anterior wall Is this a current diagnosis for this admission?: Yes Plan: This is possible given her troponin, EKG and episode of VT. Will keep K > 4, check echocardiogram, consult Dr. Garzon. (2) Acute respiratory failure Qualifiers: Respiratory failure complication: hypoxia Qualified Code(s): J96.01 - Acute respiratory failure with hypoxia Is this a current diagnosis for this admission?: Yes Plan: Said to be hypoxic at home where she was intubated. Not hypoxic now and extubated. (3) Ventricular tachycardia Is this a current diagnosis for this admission?: Yes Plan: One documented episode when hypokalemic. May be AR. On amiodarone. Plan Summary: To see Dr. Garzon. Treat as though she is AR for now. Critical Time Critical Time (minutes): 35 Level of Care: ICU Anticipated discharge: Home with Homehealth Anticipated DC Timeframe: Other -: 1. The care of a critical patient is a dynamic process. This note is a security systems sales representative synopsis but static in nature. The timeframe for treatments given in order is not necessarily the actual time these treatments may have been done. 2. This patient requires critical care secondary to ongoing requirements for therapy not offered or safe outside the critical care environment. Transfer to a lower level of care will result in altered life or limb morbidity and mortality. 3. Multidisciplinary rounds completed. 4. ABCDE bundle addressed.
[2020-03-02] MEDS ORDERED: NITROGLYCERIN 5 MG (0.2 MG/HR) PATCH.TD24 TD SCH (12:15)
[2020-03-02 13:38] LABS: ANION GAP 7 (5-19); BLOOD UREA NITROGEN 10 mg/dL (7-20); CALCIUM 8.2 mg/dL (8.4-10.2); CARBON DIOXIDE 24 mmol/L (22-30); CHLORIDE 104 mmol/L (98-107); GLUCOSE 238 mg/dL (75-110); POTASSIUM 3.5 mmol/L (3.6-5.0)
[2020-03-02] MEDS ORDERED: METOPROLOL TARTRATE PF/INJ 5 MG/5 ML SDV IV PRN (14:14)
[2020-03-02] MEDS: FUROSEMIDE INJ/PF 20 MG/2 ML SDV ONE ×2 (14:19)
[2020-03-02] MEDS ORDERED: METOPROLOL TARTRATE PF/INJ 5 MG/5 ML SDV IV ONE (14:45)
[2020-03-02] MEDS: NITROGLYCERIN 2% OINTMENT 1 GM PACKET TP SCH ×3 (15:24→23:38)
[2020-03-02] MEDS ORDERED: DIGOXIN INJ 0.5 MG/2 ML AMPULE IV ONE (15:30)
[2020-03-02] MEDS: ENALAPRILAT DIHYDRATE INJ/PF 1.25 MG/1 ML SDV IV SCH (15:44)
--- NOTE | 2020-03-02 17:09 | EKG REPORT ---
SEVERITY:- ABNORMAL ECG - SINUS TACHYCARDIA LEFT BUNDLE BRANCH BLOCK : Confirmed by: Parker Contreras MD 02-Mar-2020 17:09:19
[2020-03-02] MEDS: ACETAMINOPHEN 325 MG TABLET PO PRN (19:48)
[2020-03-02 20:38] LABS: BLOOD UREA NITROGEN 10 mg/dL (7-20); CALCIUM 8.3 mg/dL (8.4-10.2); CHLORIDE 101 mmol/L (98-107); GLUCOSE 194 mg/dL (75-110); PHOSPHORUS 1.9 mg/dL (2.5-4.5)
[2020-03-02 20:43] LABS: CARBON DIOXIDE 30 mmol/L (22-30)
[2020-03-02 20:57] LABS: ANION GAP 5 (5-19)
--- NOTE | 2020-03-02 21:32 | PDOC CONSULTATION ---
Consultation-Blank Consultation: CARDIOLOGY CONSULTATION by Dr. Hannah Kasper. Patient seen at 2 PM on 03/02/2020. 60 minutes spent on the patient with more than 50% of time spent in direct patient care. REASON FOR CONSULTATION: Cardiology assessment for possible anterior wall FL. CONSULT REQUESTING PHYSICIAN: Dr. Pham, highway maintenance supervisor. HISTORY OF PRESENT ILLNESS: Note patient speaks a little bit of broken Greek. History obtained from the chart and also from the patient's granddaughter who does speak Greek. As per discussion with the patient's granddaughter the patient had developed shortness of breath and cough and some fever last Monday. She was seen in her primary care doctor's office and had a COVID 19 testing done which was said to be negative. The patient was also treated for pneumonia. Subsequently the patient symptoms worsened and the patient was intubated by EMS. She had a cardioversion for some unknown reason. Most likely ventricular tachycardia. Subsequently the patient was found to have have nonsustained ventricular tachycardia with hypokalemia the patient was started on IV amiodarone and the potassium has been drip was replaced. Subsequent to that there was no further ectopy. After extubation the patient was found to be short of breath. It was initially thought that due to the EKG reading by the reading dobie man that the patient had anterior wall FL. This also due to the fact that the patient's troponin was elevated. But it looks like troponin elevation secondary to supply demand mismatch. The patient at present is on a face tent and denies chest pain she speaks a little bit of Greek she does complain of shortness of breath. As per the granddaughter the patient prior to last week has been very sedentary and hence had no major symptoms of PND orthopnea or leg edema. There is no prior history of FL or anginal symptoms or heart failure symptoms. Or signs. She has a history of hypertension diabetes mellitus and hyper lipidemia. Not much else history is obtained. There is definitely no prior history of syncope. I am unable to locate the EMS's notes on this patient when they brought her to [facility]. Past Medical History Cardiac Medical History: Reports: Hyperlipidema, Hypertension Neurological Medical History: Denies: Seizures Endocrine Medical History: Reports: Diabetes Mellitus Type 2 GI Medical History: Reports: Gastroesophageal Reflux Disease Musculoskeltal Medical History: Reports: Arthritis Past Surgical History Past Surgical History: Reports: Orthopedic Surgery Denies: Hysterectomy Social/Family History - Social History Smoking Status: Never Smoker Frequency of Alcohol Use: None Hx Recreational Drug Use: No Drugs: None Hx Prescription Drug Abuse: No - Medication/Allergies Home Medications: Insulin Glargine,Hum.rec.anlog [Lantus Insulin Inj 300 Unit/3 ml Pen] 15 unit SUBCUT QHS 07/20/17 Lisinopril/Hydrochlorothiazide [Lisinopril-Hctz 20-12.5 mg Tab] 1 tab PO DAILY 07/20/17 Sitagliptin Phos/Metformin HCl [Janumet Xr 100-1,000 mg Tablet] 1 tab PO DAILY 07/20/17 Allergies/Adverse Reactions: No Known Allergies Allergy (Unverified 07/20/17 02:39) RESUSCITATION STATUS: Patient is a full code. The patient's daughter is her surrogate healthcare decision maker Current Medications Generic Name Dose Route Start Last Admin Trade Name Freq PRN Reason Stop Dose Admin Acetaminophen 650 mg 03/02/20 18:17 03/02/20 19:48 Tylenol 325 Mg Tablet PO 04/01/20 18:16 650 mg Q4HP PRN Administration FEVER >101 Albuterol/Ipratropium 3 ml 03/01/20 02:00 Duoneb 3 Ml Ampul NEB 03/31/20 01:59 [id number] PRN SHORTNESS OF BREATH Dextrose 12.5 gm 03/01/20 02:00 Dextrose Inj 50% Syringe (25 Gm/50 Ml) IV 03/31/20 01:59 PRN PRN FOR BG 50-69 IN ALERT PATIENT Protocol Dextrose 25 gm 03/01/20 02:00 Dextrose Inj 50% Syringe (25 Gm/50 Ml) IV 03/31/20 01:59 PRN PRN See Label Comments Protocol Enalaprilat 2.5 mg 03/03/20 03:00 Vasotec Inj/Pf 1.25 Mg/1 Ml Sdv IV 04/02/20 02:59 Q6A MEG Furosemide 40 mg 03/02/20 22:00 03/02/20 22:14 Lasix Inj/Pf 40 Mg/4 Ml Sdv IV 04/01/20 21:59 40 mg Q8 MEG Administration Glucagon 1 mg 03/01/20 02:58 Glucagen Inj 1 Mg Vial IM 03/31/20 02:57 PRN PRN Evaluate for BG < 70 Protocol Glucose 15 gm 03/01/20 02:00 Glutose 40% Gel 15 Gm Tube PO 03/31/20 01:59 PRN PRN For BG 50-69 in Alert Patient Protocol Glucose 30 gm 03/01/20 02:00 Glutose 40% Gel 15 Gm Tube PO 03/31/20 01:59 PRN PRN FOR BG < 50 IN ALERT PATIENT Protocol Heparin Sodium (Porcine) 5,000 unit 03/01/20 14:00 03/02/20 22:14 Heparin Inj 5,000 Units/Ml 1 Ml Vial SUBCUT 03/31/20 13:59 5,000 unit Q8 MEG Administration Sodium Chloride 2,160 mls @ 0 mls/hr 02/29/20 22:13 03/01/20 00:32 Nacl 0.9% 1000 Ml Iv Soln IV 03/30/20 22:12 Infused CONTINUOUS PRN Infusion THIS MED IS NOT "PRN" Wide Open Piperacillin Sod/Tazobactam 100 mls @ 200 mls/hr 03/01/20 06:00 03/02/20 17:42 Sod 3.375 gm/ Sodium Chloride IV 03/08/20 05:59 200 mls/hr Q6 MEG 200 mls/hr Administration Amiodarone HCl 900 mg/ 500 mls @ 0 mls/hr 03/02/20 09:15 03/02/20 15:45 Dextrose IV 03/05/20 09:14 0.5 mg/min CONTINUOUS PRN 16.67 mls/hr THIS MED IS NOT "PRN" Titration Protocol Per Protocol Potassium Chloride/Water 20 meq in 50 mls @ 25 mls/hr 03/02/20 21:45 03/02/20 22:17 Potassium Chloride Phil 20 Meq/50 Ml IV 03/03/20 01:44 25 mls/hr Q2H MEG 25 mls/hr Administration Insulin Human Regular 0 - 12 unit 03/01/20 09:00 03/02/20 22:18 Humulin R (Pyxis) Insulin 100 Unit/Ml 3ml SUBCUT 03/31/20 08:59 2 unit Q6A MEG Administration Protocol Metoprolol Tartrate 5 mg 03/02/20 14:14 Lopressor Inj/Pf 5 Mg/5 Ml Sdv IV 04/01/20 14:13 Q3HP PRN HR > 100 Nitroglycerin 1 gm 03/02/20 15:15 03/02/20 17:40 Nitrol 2% Ointment 1gm Packet TP 04/01/20 15:14 1 gm Q6 MEG Administration Potassium Chloride 20 meq 03/02/20 22:00 03/02/20 21:42 Klor-Con 10 Meq Tablet Er PO 04/01/20 21:59 Not Given Q8 MEG Sodium Chloride 2.5 ml 02/29/20 22:00 03/02/20 21:43 Saline Flush 2.5 Ml Monoject Prefil Syrin IV 03/30/20 21:59 Not Given Q8 MEG Sodium Chloride 2.5 ml 03/01/20 06:00 03/02/20 21:43 Saline Flush 2.5 Ml Monoject Prefil Syrin IV 03/31/20 05:59 Not Given Q8 MEG Discontinued Medications Generic Name Dose Route Start Last Admin Trade Name Freq PRN Reason Stop Dose Admin Dextrose 25 gm 03/01/20 02:58 Dextrose Inj 50% Syringe (25 Gm/50 Ml) IV 03/31/20 02:57 PRN PRN PER PROTOCOL Protocol Digoxin 0.25 mg 03/02/20 15:30 03/02/20 17:37 Lanoxin Inj 0.5 Mg/2 Ml Ampule IV 03/02/20 15:31 0.25 mg NOW ONE Administration Enalaprilat 1.25 mg 03/02/20 15:15 03/02/20 15:44 Vasotec Inj/Pf 1.25 Mg/1 Ml Sdv IV 04/01/20 15:14 1.25 mg Q6A MEG Administration Enalaprilat Confirm 03/02/20 21:58 03/02/20 22:16 Vasotec Inj/Pf 1.25 Mg/1 Ml Sdv Administered 03/02/20 21:59 Not Given Dose 1.25 mg IV .STK-MED ONE Furosemide 40 mg 03/02/20 01:22 03/02/20 01:59 Lasix Inj/Pf 40 Mg/4 Ml Sdv IV 03/02/20 01:23 40 mg NOW ONE Administration Furosemide 40 mg 03/02/20 14:45 03/02/20 14:19 Lasix Inj/Pf 40 Mg/4 Ml Sdv IV 03/02/20 14:46 40 mg NOW ONE Administration Furosemide Confirm 03/02/20 14:08 03/02/20 14:19 Lasix Inj/Pf 20 Mg/2 Ml Sdv Administered 03/02/20 14:09 Not Given Dose 20 mg .ROUTE .STK-MED ONE Glucagon 1 mg 03/01/20 02:00 Glucagen Inj 1 Mg Vial SUBCUT 03/31/20 01:59 PRN PRN Evaluate for BG < 70 Protocol Heparin Sodium (Porcine) 5,000 unit 03/01/20 02:15 03/01/20 03:52 Heparin Inj 5,000 Units/Ml 1 Ml Vial SUBCUT 03/01/20 02:16 5,000 unit NOW ONE Administration Dopamine HCl/Dextrose 800 mg in 250 mls @ 0 mls/hr 02/29/20 21:54 Dopamine Rtu 800 Mg-D5w 250 Ml (Adult) Premix IV 03/30/20 21:53 CONTINUOUS PRN THIS MED IS NOT "PRN" Protocol 5 MCG/KG/MIN Propofol 1,000 mg in 100 mls @ 2.166 mls/hr 03/01/20 00:48 03/02/20 10:15 Diprivan Rtu 1000 Mg/100 Ml Inf.Bottle IV 03/31/20 00:47 0 mcg/kg/min CONTINUOUS PRN 0 mls/hr THIS MED IS NOT "PRN" Titration Protocol 5 MCG/KG/MIN Lactated Ringer's 1,000 mls @ 20 mls/hr 03/01/20 03:32 Lactated Ringers 1000 Ml Iv Soln IV 03/31/20 03:31 CONTINUOUS PRN THIS MED IS NOT "PRN" Vancomycin HCl 1,000 mg/ 250 mls @ 166.667 mls/hr 03/01/20 03:45 03/01/20 05:21 Dextrose IV 03/01/20 05:14 Infused NOW ONE Infusion Lactated Ringer's 1,000 mls @ 125 mls/hr 03/01/20 06:39 Lactated Ringers 1000 Ml Iv Soln IV 03/31/20 03:31 CONTINUOUS PRN THIS MED IS NOT "PRN" Vancomycin HCl 750 mg/ 250 mls @ 166.667 mls/hr 03/01/20 18:00 03/02/20 06:44 Dextrose IV 03/08/20 17:59 500.01 mg/hr Q12A MEG 166.67 mls/hr Administration Lactated Ringer's 1,000 mls @ 999 mls/hr 03/01/20 17:09 03/01/20 17:50 Lactated Ringers 1000 Ml Iv Soln IV 03/31/20 17:08 Infused CONTINUOUS PRN Infusion THIS MED IS NOT "PRN" Lactated Ringer's 500 mls @ 0 mls/hr 03/02/20 01:22 03/02/20 01:53 Lactated Ringers 1000 Ml Iv Soln IV 03/02/20 01:23 999 mls/hr BOLUS ONE Administration Wide Open Potassium Chloride/Water Confirm 03/02/20 05:22 03/02/20 06:41 Potassium Chloride Phil 20 Meq/50 Ml Administered 03/02/20 05:23 10 meq/hr Dose 25 mls/hr 40 meq in 100 mls @ ud Administration IV .STK-MED ONE Magnesium Sulfate/Dextrose Confirm 03/02/20 05:22 03/02/20 06:35 Magnesium Sulfate Rtu-D5w 1 Gm/100 Ml Premix Administered 03/02/20 05:23 Not Given Dose 2 gm in 200 mls @ ud IV .STK-MED ONE Potassium Chloride/Water 20 meq in 50 mls @ 25 mls/hr 03/02/20 05:45 03/02/20 09:07 Potassium Chloride Phil 20 Meq/50 Ml IV 03/02/20 09:44 25 mls/hr Q2H MEG 25 mls/hr Administration Magnesium Sulfate/Dextrose 1 gm in 100 mls @ 100 mls/hr 03/02/20 05:45 03/02/20 06:32 Magnesium Sulfate Rtu-D5w 1 Gm/100 Ml Premix IV 03/02/20 07:44 100 mls/hr Q1H MEG 100 mls/hr Administration Magnesium Sulfate/Dextrose 1 gm in 100 mls @ 100 mls/hr 03/02/20 09:00 11:43 Magnesium Sulfate Rtu-D5w 1 Gm/100 Ml Premix IV 03/02/20 10:59 100 ml/hr Q1H MEG 100 mls/hr Administration Amiodarone HCl 150 mg/ 100 mls @ 600 mls/hr 03/02/20 09:15 03/02/20 09:19 Dextrose IV 03/02/20 09:24 600 mls/hr NOW ONE Administration Protocol Potassium Chloride/Water Confirm 03/02/20 21:40 03/02/20 22:15 Potassium Chloride Phil 20 Meq/50 Ml Administered 03/02/20 21:41 Not Given Dose 20 meq in 50 mls @ ud IV .STK-MED ONE Insulin Human Regular 0 - 12 unit 03/01/20 03:45 03/01/20 04:04 Humulin R (Pyxis) Insulin 100 Unit/Ml 3ml SUBCUT 03/01/20 03:46 6 unit NOW ONE Administration Protocol Metoprolol Tartrate 5 mg 03/02/20 14:45 03/02/20 15:37 Lopressor Inj/Pf 5 Mg/5 Ml Sdv IV 03/02/20 14:46 5 mg NOW ONE Administration Midazolam HCl 4 mg 03/01/20 01:32 03/01/20 01:37 Versed 2 Mg/2 Ml Inj IV 03/01/20 01:33 4 mg NOW ONE Administration Morphine Sulfate Confirm 03/02/20 05:26 03/02/20 06:40 Morphine 10 Mg/Ml Inj Administered 03/02/20 05:27 Not Given Dose 10 mg .ROUTE .STK-MED ONE Morphine Sulfate 4 mg 03/02/20 06:00 03/02/20 05:30 Morphine 10 Mg/Ml Inj IV 03/02/20 06:01 4 mg NOW ONE Administration Nitroglycerin Confirm 03/02/20 05:27 03/02/20 06:39 Nitrol 2% Ointment 1gm Packet Administered 03/02/20 05:28 Not Given Dose 1 gm .ROUTE .STK-MED ONE Nitroglycerin 1 gm 03/02/20 05:45 03/02/20 06:39 Nitrol 2% Ointment 1gm Packet TP 03/02/20 05:46 1 gm NOW ONE Administration Nitroglycerin 1 each 03/02/20 12:15 03/02/20 14:02 Nitro-Dur 5 Mg (0.2 Mg/Hr) Transdermal Patch TD 04/01/20 12:14 Not Given DAILY MEG Piperacillin Sod/Tazobactam Sod 3.375 gm 02/29/20 21:56 02/29/20 22:21 Zosyn Inj 3.375 Gm Vial IV 02/29/20 21:57 3.375 gm IVBAG (ED) ONE Administration Piperacillin Sod/Tazobactam Sod 3.375 gm 03/01/20 03:36 Zosyn Inj 3.375 Gm Vial IV 03/01/20 09:00 ASDIR PRN Potassium Chloride 40 meq 03/02/20 21:49 03/02/20 22:16 Klor-Con 10 Meq Tablet Er PO 03/02/20 21:50 Not Given NOW ONE Vancomycin HCl 1,000 mg 03/01/20 03:41 Vancocin Inj 1000 Mg Vial IV 03/01/20 09:00 ASDIR PRN REVIEW OF SYSTEMS: : Patient not able to give much of a review of symptoms. But as per the gra nddaughter the patient has been very sedentary. The patient started becoming sick with shortness of breath and diagnosed with pneumonia. There is some fever but no rigors or chills. In the emergency room the patient had a temperature. There is constitutional: There is generalized fatigue and weakness. EARS: There is no hearing loss. There is no tinnitus. EYES: There is no visual disturbance s. There is no symptoms suggestive amblyopia. NOSE: No history of hayfever. THROAT: No history of odynophagia or dysphagia. MOUTH: No history of altered taste sensation. No bleeding from mouth. LUNGS: No history of asthma or COPD. Recent symptoms of shortness of breath. With symptoms suggestive of PND orthopnea. There is no wheezing. There is cough nonproductive sputum. There is no hemoptysis. HEART: There is no prior history of [place] no chest pain or discomfort. There is shortness of breath. No prior history of cardiac arrhythmia. The patient was noted this admission to have nonsustained ventricular tachycardia due to hypokalemia most likely. At present on amiodarone there is no ectopy. ENDOCRINE: History of diabetes mellitus dau-dixyrmd-boahftgvo type II. No polydipsia polyuria. No history of heat or cold intolerance. RENAL: No history of chronic kidney disease. No symptoms of UTI. LOCAL ANNOUNCER: No history of TIA CVA no severe headaches migraines or seizures. PSYCHIATRIC: No history of anxiety or depression. No suicidal ideation. No homicidal ideation. PHYSICAL EXAMINATION: The patient is well-built. Does appear to be in moderate respiratory distress and appears to be short of breath in spite of her face tent. Selected Entries 0803/02/20 03/02/20 14:01 14:44 15:42 Core 101.3 F H 101.3 F H Temperature Heart Rate ( 125 Monitors) Respiratory 35 H Rate Blood Pressure 172/102 H Blood Pressure 125 Mean O2 Sat by Pulse 92 93 Oximetry 03/02/20 03/02/20 15:43 15:44 Core 101.3 F H Temperature Heart Rate ( 91 Monitors) Respiratory 28 H Rate Blood Pressure 140/85 H Blood Pressure 103 Mean O2 Sat by Pulse 93 91 L Oximetry Patient on a face tent with FiO2 50% HEAD: Is atraumatic normocephalic. EYES: Pupils are equal round regular reactive to light and accommodation. Extraocular movements are normal. There is no conjunctival pallor. EARS: Tympanic membranes are intact. External auditory canals are clear. NOSE: There is no deviated nasal septum. There is no inflammation nasal mucous membrane. MOUTH: Mucous membranes of mouth are moist. Tongue is moist. There is no ulcers. THROAT: There is no redness or oropharynx there is no exudates. SKIN: There is no skin rashes. There is no petechia or ecchymosis. There is no skin lesions. NECK: Is supple. There is JVD present. Carotids are equal there is no bruits. There is no lymphadenopathy. There is no goiter. There is no accessory muscle respiration use. Trachea central. LUNGS: There is absent breath sounds left greater than right basis. There is dullness in this areas. This area is there is tubular [bronchial] breath sounds. There is scattered rhonchi. There is no wheezing. Just above the area of dullness is a few bibasilar rales. HEART S1-S2 is heard. There is no S4 gallop. There is S3 gallop present. There is murmur of mild aortic stenosis. A2 is preserved. There is murmur of mitral regurgitation and tricuspid regurgitation present. There is no rub. ABDOMEN: Soft. Nontender there is no paraspinal megaly. Bowel sounds are well heard. EXTREMITIES: Femorals are well felt. Leg pulses well felt. There is no femoral bruits. There is no cyanosis or clubbing. There is no pedal edema. There is no DVT or cellulitis. LOCAL ANNOUNCER: Patient is conscious awake alert seems to be oriented x3 although language is a barrier. She has no focal deficits. PSYCHIATRIC: The patient does appear to be slightly anxious but does not appear to be agitated. Labs- Entire Visit 02/29/20 02/29/20 02/29/20 21:49 21:59 21:59 WBC 8.5 RBC 5.01 Hgb 15.2 Hct 47.2 H MCV 94 MCH 30.3 MCHC 32.2 RDW 13.7 Plt Count 267 Lymph % (Auto) 50.9 H [place] % (Auto) 4.5 Eos % (Auto) 7.4 H Baso % (Auto) 1.2 Absolute Neuts (auto) 3.1 Absolute Lymphs (auto) 4.3 Absolute Monos (auto) 0.4 Absolute Eos (auto) 0.6 Absolute Basos (auto) 0.1 Total Counted Seg Neutrophils % 36.0 L Seg Neuts % (Manual) Lymphocytes % (Manual) Monocytes % (Manual) Eosinophils % (Manual) Basophils % (Manual) Abs Neuts (Manual) Abs Lymphs (Manual) Abs Monocytes (Manual) Absolute Eos (Manual) Abs Basophils (Manual) Platelet Estimate Platelet Comment Poikilocytosis Ovalocytes PT 14.2 INR 1.08 Carbonic Acid HCO3/H2CO3 Ratio ABG pH ABG pCO2 ABG pO2 ABG HCO3 ABG Total CO2 ABG O2 Saturation ABG Base Excess FiO2 Sodium Potassium Chloride Carbon Dioxide Anion Gap BUN Creatinine Est GFR ( Amer) Est GFR (MDRD) Non-Af Glucose POC Glucose Lactic Acid Calcium Phosphorus Magnesium Total Bilirubin Direct Bilirubin Neonat Total Bilirubin Neonat Direct Bilirubin Neonat Indirect Bili AST ALT Alkaline Phosphatase Creatine Kinase CK-MB (CK-2) 1.48 Troponin I < 0.012 C-Reactive Protein NT-Pro-B Natriuret Pep 1230 H Total Protein Albumin Urine Color Urine Appearance Urine pH Ur Specific [place] Urine Protein Urine Glucose (UA) Urine Ketones Urine Blood Urine Nitrite (Reflex) Urine Bilirubin Urine Urobilinogen Leukocyte Esterase Rfl Urine RBC (Auto) U Hyaline Cast (Auto) Urine WBC (Reflex) Squamous Epi Cells Auto Urine Mucus (Auto) Urine Ascorbic Acid Slides for Path Review 02/29/20 02/29/20 02/29/20 21:59 21:59 21:59 WBC RBC Hgb Hct MCV MCH MCHC RDW Plt Count Lymph % (Auto) [place] % (Auto) Eos % (Auto) Baso % (Auto) Absolute Neuts (auto) Absolute Lymphs (auto) Absolute Monos (auto) Absolute Eos (auto) Absolute Basos (auto) Total Counted Seg Neutrophils % Seg Neuts % (Manual) Lymphocytes % (Manual) Monocytes % (Manual) Eosinophils % (Manual) Basophils % (Manual) Abs Neuts (Manual) Abs Lymphs (Manual) Abs Monocytes (Manual) Absolute Eos (Manual) Abs Basophils (Manual) Platelet Estimate Platelet Comment Poikilocytosis Ovalocytes PT INR Carbonic Acid 2.16 H HCO3/H2CO3 Ratio 8:1 ABG pH 7.03 L* ABG pCO2 71.8 H* ABG pO2 76.6 L ABG HCO3 18.3 L ABG Total CO2 20.5 L ABG O2 Saturation 87.4 L ABG Base Excess -14.0 FiO2 ROOM AIR Sodium 139.3 Potassium 3.5 L Chloride 109 H Carbon Dioxide 20 L Anion Gap 10 BUN 16 Creatinine 0.66 Est GFR ( Amer) > 60 Est GFR (MDRD) Non-Af > 60 Glucose 350 H POC Glucose Lactic Acid 5.9 H Calcium 8.1 L Phosphorus Magnesium Total Bilirubin 0.3 Direct Bilirubin 0.0 Neonat Total Bilirubin Not Reportable Neonat Direct Bilirubin Not Reportable Neonat Indirect Bili Not Reportable AST 27 ALT 16 Alkaline Phosphatase 80 Creatine Kinase CK-MB (CK-2) Troponin I C-Reactive Protein NT-Pro-B Natriuret Pep Total Protein 6.4 Albumin 3.4 L Urine Color Urine Appearance Urine pH Ur Specific [place] Urine Protein Urine Glucose (UA) Urine Ketones Urine Blood Urine Nitrite (Reflex) Urine Bilirubin Urine Urobilinogen Leukocyte Esterase Rfl Urine RBC (Auto) U Hyaline Cast (Auto) Urine WBC (Reflex) Squamous Epi Cells Auto Urine Mucus (Auto) Urine Ascorbic Acid Slides for Path Review 02/29/20 02/29/20 03/01/20 21:59 22:50 02:22 WBC RBC Hgb Hct MCV MCH MCHC RDW Plt Count Lymph % (Auto) [place] % (Auto) Eos % (Auto) Baso % (Auto) Absolute Neuts (auto) Absolute Lymphs (auto) Absolute Monos (auto) Absolute Eos (auto) Absolute Basos (auto) Total Counted Seg Neutrophils % Seg Neuts % (Manual) Lymphocytes % (Manual) Monocytes % (Manual) Eosinophils % (Manual) Basophils % (Manual) Abs Neuts (Manual) Abs Lymphs (Manual) Abs Monocytes (Manual) Absolute Eos (Manual) Abs Basophils (Manual) Platelet Estimate Platelet Comment Poikilocytosis Ovalocytes PT INR Carbonic Acid HCO3/H2CO3 Ratio ABG pH ABG pCO2 ABG pO2 ABG HCO3 ABG Total CO2 ABG O2 Saturation ABG Base Excess FiO2 Sodium Potassium Chloride Carbon Dioxide Anion Gap BUN Creatinine Est GFR ( Amer) Est GFR (MDRD) Non-Af Glucose POC Glucose Lactic Acid 2.6 H Calcium Phosphorus Magnesium Total Bilirubin Direct Bilirubin Neonat Total Bilirubin Neonat Direct Bilirubin Neonat Indirect Bili AST ALT Alkaline Phosphatase Creatine Kinase 81 CK-MB (CK-2) Troponin I C-Reactive Protein NT-Pro-B Natriuret Pep Total Protein Albumin Urine Color YELLOW Urine Appearance SLIGHTLY-CLOUDY Urine pH 6.0 Ur Specific [place] 1.014 Urine Protein 100 H Urine Glucose (UA) >=500 H Urine Ketones NEGATIVE Urine Blood NEGATIVE Urine Nitrite (Reflex) NEGATIVE Urine Bilirubin NEGATIVE Urine Urobilinogen NEGATIVE Leukocyte Esterase Rfl NEGATIVE Urine RBC (Auto) 4 U Hyaline Cast (Auto) 5 Urine WBC (Reflex) 5 Squamous Epi Cells Auto <1 Urine Mucus (Auto) RARE Urine Ascorbic Acid NEGATIVE Slides for Path Review 03/01/20 03/01/20 03/01/20 03:57 05:07 05:07 WBC 15.2 H RBC 4.76 Hgb 14.5 Hct 43.4 MCV 91 MCH 30.4 MCHC 33.3 RDW 13.4 Plt Count 217 Lymph % (Auto) [place] % (Auto) Eos % (Auto) Baso % (Auto) Absolute Neuts (auto) Absolute Lymphs (auto) Absolute Monos (auto) Absolute Eos (auto) Absolute Basos (auto) Total Counted Seg Neutrophils % Seg Neuts % (Manual) Lymphocytes % (Manual) Monocytes % (Manual) Eosinophils % (Manual) Basophils % (Manual) Abs Neuts (Manual) Abs Lymphs (Manual) Abs Monocytes (Manual) Absolute Eos (Manual) Abs Basophils (Manual) Platelet Estimate Platelet Comment Poikilocytosis Ovalocytes PT INR Carbonic Acid HCO3/H2CO3 Ratio ABG pH ABG pCO2 ABG pO2 ABG HCO3 ABG Total CO2 ABG O2 Saturation ABG Base Excess FiO2 Sodium Potassium Chloride Carbon Dioxide Anion Gap BUN Creatinine Est GFR ( Amer) Est GFR (MDRD) Non-Af Glucose POC Glucose 259 H Lactic Acid 3.2 H Calcium Phosphorus Magnesium Total Bilirubin Direct Bilirubin Neonat Total Bilirubin Neonat Direct Bilirubin Neonat Indirect Bili AST ALT Alkaline Phosphatase Creatine Kinase CK-MB (CK-2) Troponin I C-Reactive Protein NT-Pro-B Natriuret Pep Total Protein Albumin Urine Color Urine Appearance Urine pH Ur Specific [place] Urine Protein Urine Glucose (UA) Urine Ketones Urine Blood Urine Nitrite (Reflex) Urine Bilirubin Urine Urobilinogen Leukocyte Esterase Rfl Urine RBC (Auto) U Hyaline Cast (Auto) Urine WBC (Reflex) Squamous Epi Cells Auto Urine Mucus (Auto) Urine Ascorbic Acid Slides for Path Review 03/01/20 03/01/20 03/01/20 05:07 05:07 08:35 WBC RBC Hgb Hct MCV MCH MCHC RDW Plt Count Lymph % (Auto) [place] % (Auto) Eos % (Auto) Baso % (Auto) Absolute Neuts (auto) Absolute Lymphs (auto) Absolute Monos (auto) Absolute Eos (auto) Absolute Basos (auto) Total Counted Seg Neutrophils % Seg Neuts % (Manual) Lymphocytes % (Manual) Monocytes % (Manual) Eosinophils % (Manual) Basophils % (Manual) Abs Neuts (Manual) Abs Lymphs (Manual) Abs Monocytes (Manual) Absolute Eos (Manual) Abs Basophils (Manual) Platelet Estimate Platelet Comment Poikilocytosis Ovalocytes PT INR Carbonic Acid 0.81 L HCO3/H2CO3 Ratio 20:1 ABG pH 7.41 ABG pCO2 26.9 L ABG pO2 58.3 L ABG HCO3 16.7 L ABG Total CO2 17.5 L ABG O2 Saturation 91.1 L ABG Base Excess -6.1 FiO2 40% Sodium 136.7 L Potassium 3.7 Chloride 110 H Carbon Dioxide 17 L Anion Gap 10 BUN 16 Creatinine 0.53 Est GFR ( Amer) > 60 Est GFR (MDRD) Non-Af > 60 Glucose 317 H POC Glucose Lactic Acid Calcium 7.7 L Phosphorus Magnesium 1.7 Total Bilirubin Direct Bilirubin Neonat Total Bilirubin Neonat Direct Bilirubin Neonat Indirect Bili AST ALT Alkaline Phosphatase Creatine Kinase CK-MB (CK-2) Troponin I C-Reactive Protein NT-Pro-B Natriuret Pep 3320 H Total Protein Albumin Urine Color Urine Appearance Urine pH Ur Specific [place] Urine Protein Urine Glucose (UA) Urine Ketones Urine Blood Urine Nitrite (Reflex) Urine Bilirubin Urine Urobilinogen Leukocyte Esterase Rfl Urine RBC (Auto) U Hyaline Cast (Auto) Urine WBC (Reflex) Squamous Epi Cells Auto Urine Mucus (Auto) Urine Ascorbic Acid Slides for Path Review 03/01/20 03/01/20 03/01/20 12:05 16:00 18:48 WBC RBC Hgb Hct MCV MCH MCHC RDW Plt Count Lymph % (Auto) [place] % (Auto) Eos % (Auto) Baso % (Auto) Absolute Neuts (auto) Absolute Lymphs (auto) Absolute Monos (auto) Absolute Eos (auto) Absolute Basos (auto) Total Counted Seg Neutrophils % Seg Neuts % (Manual) Lymphocytes % (Manual) Monocytes % (Manual) Eosinophils % (Manual) Basophils % (Manual) Abs Neuts (Manual) Abs Lymphs (Manual) Abs Monocytes (Manual) Absolute Eos (Manual) Abs Basophils (Manual) Platelet Estimate Platelet Comment Poikilocytosis Ovalocytes PT INR Carbonic Acid 1.12 HCO3/H2CO3 Ratio 19:1 ABG pH 7.39 ABG pCO2 37.3 ABG pO2 60.4 L ABG HCO3 21.9 ABG Total CO2 23.0 ABG O2 Saturation 91.0 L ABG Base Excess -2.7 FiO2 40% Sodium Potassium Chloride Carbon Dioxide Anion Gap BUN Creatinine Est GFR ( Amer) Est GFR (MDRD) Non-Af Glucose POC Glucose 202 H 125 H Lactic Acid Calcium Phosphorus Magnesium Total Bilirubin Direct Bilirubin Neonat Total Bilirubin Neonat Direct Bilirubin Neonat Indirect Bili AST ALT Alkaline Phosphatase Creatine Kinase CK-MB (CK-2) Troponin I C-Reactive Protein NT-Pro-B Natriuret Pep Total Protein Albumin Urine Color Urine Appearance Urine pH Ur Specific [place] Urine Protein Urine Glucose (UA) Urine Ketones Urine Blood Urine Nitrite (Reflex) Urine Bilirubin Urine Urobilinogen Leukocyte Esterase Rfl Urine RBC (Auto) U Hyaline Cast (Auto) Urine WBC (Reflex) Squamous Epi Cells Auto Urine Mucus (Auto) Urine Ascorbic Acid Slides for Path Review 03/01/20 03/02/20 03/02/20 20:22 00:10 04:20 WBC 8.7 RBC 4.92 Hgb 15.1 Hct 43.8 MCV 89 MCH 30.6 MCHC 34.4 RDW 13.4 Plt Count 188 Lymph % (Auto) Not Reportable [place] % (Auto) Not Reportable Eos % (Auto) Not Reportable Baso % (Auto) Not Reportable Absolute Neuts (auto) Not Reportable Absolute Lymphs (auto) Not Reportable Absolute Monos (auto) Not Reportable Absolute Eos (auto) Not Reportable Absolute Basos (auto) Not Reportable Total Counted 100 Seg Neutrophils % Not Reportable Seg Neuts % (Manual) 80 H Lymphocytes % (Manual) 15 Monocytes % (Manual) 5 Eosinophils % (Manual) 0 Basophils % (Manual) 0 Abs Neuts (Manual) 7.0 Abs Lymphs (Manual) 1.3 Abs Monocytes (Manual) 0.4 Absolute Eos (Manual) 0.0 Abs Basophils (Manual) 0.0 Platelet Estimate Platelet Comment ADEQUATE Poikilocytosis SLIGHT Ovalocytes SLIGHT PT INR Carbonic Acid HCO3/H2CO3 Ratio ABG pH ABG pCO2 ABG pO2 ABG HCO3 ABG Total CO2 ABG O2 Saturation ABG Base Excess FiO2 Sodium Potassium Chloride Carbon Dioxide Anion Gap BUN Creatinine Est GFR ( Amer) Est GFR (MDRD) Non-Af Glucose POC Glucose 144 H 147 H Lactic Acid Calcium Phosphorus Magnesium Total Bilirubin Direct Bilirubin Neonat Total Bilirubin Neonat Direct Bilirubin Neonat Indirect Bili AST ALT Alkaline Phosphatase Creatine Kinase CK-MB (CK-2) Troponin I C-Reactive Protein NT-Pro-B Natriuret Pep Total Protein Albumin Urine Color Urine Appearance Urine pH Ur Specific [place] Urine Protein Urine Glucose (UA) Urine Ketones Urine Blood Urine Nitrite (Reflex) Urine Bilirubin Urine Urobilinogen Leukocyte Esterase Rfl Urine RBC (Auto) U Hyaline Cast (Auto) Urine WBC (Reflex) Squamous Epi Cells Auto Urine Mucus (Auto) Urine Ascorbic Acid Slides for Path Review 03/02/20 03/02/20 03/02/20 04:20 04:20 04:20 WBC Cancelled RBC Cancelled Hgb Cancelled Hct Cancelled MCV Cancelled MCH Cancelled MCHC Cancelled RDW Cancelled Plt Count Cancelled Lymph % (Auto) Cancelled [place] % (Auto) Cancelled Eos % (Auto) Cancelled Baso % (Auto) Cancelled Absolute Neuts (auto) Cancelled Absolute Lymphs (auto) Cancelled Absolute Monos (auto) Cancelled Absolute Eos (auto) Cancelled Absolute Basos (auto) Cancelled Total Counted Seg Neutrophils % Cancelled Seg Neuts % (Manual) Lymphocytes % (Manual) Monocytes % (Manual) Eosinophils % (Manual) Basophils % (Manual) Abs Neuts (Manual) Abs Lymphs (Manual) Abs Monocytes (Manual) Absolute Eos (Manual) Abs Basophils (Manual) Platelet Estimate Cancelled Platelet Comment Poikilocytosis Ovalocytes PT INR Carbonic Acid HCO3/H2CO3 Ratio ABG pH ABG pCO2 ABG pO2 ABG HCO3 ABG Total CO2 ABG O2 Saturation ABG Base Excess FiO2 Sodium 136.6 L Potassium 3.1 L Chloride 106 Carbon Dioxide 24 Anion Gap 7 BUN 12 Creatinine 0.57 Est GFR ( Amer) > 60 Est GFR (MDRD) Non-Af > 60 Glucose 188 H POC Glucose Lactic Acid Calcium 8.6 Phosphorus Magnesium 1.6 Total Bilirubin Direct Bilirubin Neonat Total Bilirubin Neonat Direct Bilirubin Neonat Indirect Bili AST ALT Alkaline Phosphatase Creatine Kinase CK-MB (CK-2) Troponin I C-Reactive Protein NT-Pro-B Natriuret Pep 5920 H Total Protein Albumin Urine Color Urine Appearance Urine pH Ur Specific [place] Urine Protein Urine Glucose (UA) Urine Ketones Urine Blood Urine Nitrite (Reflex) Urine Bilirubin Urine Urobilinogen Leukocyte Esterase Rfl Urine RBC (Auto) U Hyaline Cast (Auto) Urine WBC (Reflex) Squamous Epi Cells Auto Urine Mucus (Auto) Urine Ascorbic Acid Slides for Path Review Cancelled 03/02/20 03/02/20 03/02/20 04:20 04:20 05:16 WBC RBC Hgb Hct MCV MCH MCHC RDW Plt Count Lymph % (Auto) [place] % (Auto) Eos % (Auto) Baso % (Auto) Absolute Neuts (auto) Absolute Lymphs (auto) Absolute Monos (auto) Absolute Eos (auto) Absolute Basos (auto) Total Counted Seg Neutrophils % Seg Neuts % (Manual) Lymphocytes % (Manual) Monocytes % (Manual) Eosinophils % (Manual) Basophils % (Manual) Abs Neuts (Manual) Abs Lymphs (Manual) Abs Monocytes (Manual) Absolute Eos (Manual) Abs Basophils (Manual) Platelet Estimate Platelet Comment Poikilocytosis Ovalocytes PT INR Carbonic Acid HCO3/H2CO3 Ratio ABG pH ABG pCO2 ABG pO2 ABG HCO3 ABG Total CO2 ABG O2 Saturation ABG Base Excess FiO2 Sodium Potassium Chloride Carbon Dioxide Anion Gap BUN Creatinine Est GFR ( Amer) Est GFR (MDRD) Non-Af Glucose POC Glucose 168 H Lactic Acid Calcium Phosphorus Magnesium Total Bilirubin Direct Bilirubin Neonat Total Bilirubin Neonat Direct Bilirubin Neonat Indirect Bili AST ALT Alkaline Phosphatase Creatine Kinase 157 H CK-MB (CK-2) 2.73 Troponin I 0.570 C-Reactive Protein NT-Pro-B Natriuret Pep Total Protein Albumin Urine Color Urine Appearance Urine pH Ur Specific [place] Urine Protein Urine Glucose (UA) Urine Ketones Urine Blood Urine Nitrite (Reflex) Urine Bilirubin Urine Urobilinogen Leukocyte Esterase Rfl Urine RBC (Auto) U Hyaline Cast (Auto) Urine WBC (Reflex) Squamous Epi Cells Auto Urine Mucus (Auto) Urine Ascorbic Acid Slides for Path Review 03/02/20 03/02/20 03/02/20 08:55 08:57 11:45 WBC RBC Hgb Hct MCV MCH MCHC RDW Plt Count Lymph % (Auto) [place] % (Auto) Eos % (Auto) Baso % (Auto) Absolute Neuts (auto) Absolute Lymphs (auto) Absolute Monos (auto) Absolute Eos (auto) Absolute Basos (auto) Total Counted Seg Neutrophils % Seg Neuts % (Manual) Lymphocytes % (Manual) Monocytes % (Manual) Eosinophils % (Manual) Basophils % (Manual) Abs Neuts (Manual) Abs Lymphs (Manual) Abs Monocytes (Manual) Absolute Eos (Manual) Abs Basophils (Manual) Platelet Estimate Platelet Comment Poikilocytosis Ovalocytes PT INR Carbonic Acid 1.14 HCO3/H2CO3 Ratio 21:1 ABG pH 7.42 ABG pCO2 37.9 ABG pO2 57.6 L ABG HCO3 24.0 ABG Total CO2 25.1 H ABG O2 Saturation 90.6 L ABG Base Excess -0.2 FiO2 40% Sodium Potassium Chloride Carbon Dioxide Anion Gap BUN Creatinine Est GFR ( Amer) Est GFR (MDRD) Non-Af Glucose POC Glucose 196 H 187 H Lactic Acid Calcium Phosphorus Magnesium Total Bilirubin Direct Bilirubin Neonat Total Bilirubin Neonat Direct Bilirubin Neonat Indirect Bili AST ALT Alkaline Phosphatase Creatine Kinase CK-MB (CK-2) Troponin I C-Reactive Protein NT-Pro-B Natriuret Pep Total Protein Albumin Urine Color Urine Appearance Urine pH Ur Specific [place] Urine Protein Urine Glucose (UA) Urine Ketones Urine Blood Urine Nitrite (Reflex) Urine Bilirubin Urine Urobilinogen Leukocyte Esterase Rfl Urine RBC (Auto) U Hyaline Cast (Auto) Urine WBC (Reflex) Squamous Epi Cells Auto Urine Mucus (Auto) Urine Ascorbic Acid Slides for Path Review 03/02/20 03/02/20 03/02/20 13:12 14:57 14:57 WBC RBC Hgb Hct MCV MCH MCHC RDW Plt Count Lymph % (Auto) [place] % (Auto) Eos % (Auto) Baso % (Auto) Absolute Neuts (auto) Absolute Lymphs (auto) Absolute Monos (auto) Absolute Eos (auto) Absolute Basos (auto) Total Counted Seg Neutrophils % Seg Neuts % (Manual) Lymphocytes % (Manual) Monocytes % (Manual) Eosinophils % (Manual) Basophils % (Manual) Abs Neuts (Manual) Abs Lymphs (Manual) Abs Monocytes (Manual) Absolute Eos (Manual) Abs Basophils (Manual) Platelet Estimate Platelet Comment Poikilocytosis Ovalocytes PT INR Carbonic Acid HCO3/H2CO3 Ratio ABG pH ABG pCO2 ABG pO2 ABG HCO3 ABG Total CO2 ABG O2 Saturation ABG Base Excess FiO2 Sodium 134.7 L Potassium 3.5 L Chloride 104 Carbon Dioxide 24 Anion Gap 7 BUN 10 Creatinine 0.55 Est GFR ( Amer) > 60 Est GFR (MDRD) Non-Af > 60 Glucose 238 H POC Glucose Lactic Acid Calcium 8.2 L Phosphorus Magnesium Total Bilirubin Direct Bilirubin Neonat Total Bilirubin Neonat Direct Bilirubin Neonat Indirect Bili AST ALT Alkaline Phosphatase Creatine Kinase CK-MB (CK-2) Troponin I 0.415 C-Reactive Protein 85.9 H NT-Pro-B Natriuret Pep Total Protein Albumin Urine Color Urine Appearance Urine pH Ur Specific [place] Urine Protein Urine Glucose (UA) Urine Ketones Urine Blood Urine Nitrite (Reflex) Urine Bilirubin Urine Urobilinogen Leukocyte Esterase Rfl Urine RBC (Auto) U Hyaline Cast (Auto) Urine WBC (Reflex) Squamous Epi Cells Auto Urine Mucus (Auto) Urine Ascorbic Acid Slides for Path Review 03/02/20 03/02/20 03/02/20 14:57 15:39 19:30 WBC RBC Hgb Hct MCV MCH MCHC RDW Plt Count Lymph % (Auto) [place] % (Auto) Eos % (Auto) Baso % (Auto) Absolute Neuts (auto) Absolute Lymphs (auto) Absolute Monos (auto) Absolute Eos (auto) Absolute Basos (auto) Total Counted Seg Neutrophils % Seg Neuts % (Manual) Lymphocytes % (Manual) Monocytes % (Manual) Eosinophils % (Manual) Basophils % (Manual) Abs Neuts (Manual) Abs Lymphs (Manual) Abs Monocytes (Manual) Absolute Eos (Manual) Abs Basophils (Manual) Platelet Estimate Platelet Comment Poikilocytosis Ovalocytes PT INR Carbonic Acid HCO3/H2CO3 Ratio ABG pH ABG pCO2 ABG pO2 ABG HCO3 ABG Total CO2 ABG O2 Saturation ABG Base Excess FiO2 Sodium 135.8 L Potassium 3.0 L* Chloride 101 Carbon Dioxide 30 Anion Gap 5 BUN 10 Creatinine 0.61 Est GFR ( Amer) > 60 Est GFR (MDRD) Non-Af > 60 Glucose 194 H POC Glucose 233 H Lactic Acid Calcium 8.3 L Phosphorus 1.9 L Magnesium 2.2 Total Bilirubin Direct Bilirubin Neonat Total Bilirubin Neonat Direct Bilirubin Neonat Indirect Bili AST ALT Alkaline Phosphatase Creatine Kinase CK-MB (CK-2) Troponin I C-Reactive Protein NT-Pro-B Natriuret Pep 7330 H Total Protein Albumin Urine Color Urine Appearance Urine pH Ur Specific [place] Urine Protein Urine Glucose (UA) Urine Ketones Urine Blood Urine Nitrite (Reflex) Urine Bilirubin Urine Urobilinogen Leukocyte Esterase Rfl Urine RBC (Auto) U Hyaline Cast (Auto) Urine WBC (Reflex) Squamous Epi Cells Auto Urine Mucus (Auto) Urine Ascorbic Acid Slides for Path Review Chest X-Ray 02/29/20 21:55 IMPRESSION: Right pleural effusion with bilateral opacities consistent with edema and/or pneumonia. Differential diagnosis would include viral infections. Chest X-Ray 03/01/20 06:00 IMPRESSION: IMPROVED AERATION. Chest X-Ray 03/02/20 06:00 IMPRESSION: STABLE APPEARANCE OF THE CHEST. SUPPORT DEVICES UNCHANGED. ECHOCARDIOGRAM: Interpreted by me: There is borderline left ventricular dilatation. There is mild to moderate left ventricular hypertrophy. There is LV diastolic dysfunction. There is in the setting of global hypokinesis there is increased hypokinesis of the IV septum in the LV apex. LV ejection fraction is moderately reduced at 35% to 40%. There is mild aortic stenosis with a peak velocity around 25 mmHg. There is no aortic regurgitation. There is moderate to severe mitral regurgitation. Left atrium seems to be dilated mildly. Right ventricle is upper normal limits. There is moderate tricuspid regurgitation. There is moderate to severe pulmonary hypertension. Right ventricle systolic pressure is 58 to 63 mmHg assuming RA mean of 15-20. There is no pericardial effusion. There is left greater than right bilateral pleural effusions.. EKG #1: Shows sinus tachycardia with left bundle branch block pattern. Subsequent EKG shows sinus rhythm with frequent PVCs. LVH with repolarization changes. No there is severe baseline artifact and hence no definite evidence of anterior myocardial infarction. Subsequent EKG shows sinus tachycardia with left bundle branch block pattern. Monitor strips from this morning and yesterday shows some runs of nonsustained ventricular tachycardia. IMPRESSION/RECOMMENDATION: 1. Elevated troponin. This is trending down. No definite evidence of acute coronary syndrome or non-ST elevation FL. The troponin elevation is most likely secondary to supply demand mismatch due to patient's respiratory failure and heart failure. 2. Acute respiratory failure secondary to pneumonia and congestive heart failure. Note the patient was intubated and has been extubated this morning but still appears to be in some degree of respiratory distress. Continue current treatment including supplemental oxygen antibiotics. 3. Bilateral pneumona continue antibiotics. 4. 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 Would recommend IV Lasix, continue the patient on topical nitrates daily changed to Nitropaste 2% at 1 inch every 6 hours. Would add IV Vasotec. He would hold off on the metoprolol at present and later on started on metoprolol. The patient also was given 1 dose of IV digoxin 0.25 mg. Would stop the patient's IV fluids at 125 mL/h which is running. 5. Nonsustained ventricular tachycardia: Most likely secondary to hypokalemia in a patient with cardiomyopathy. At present continue IV amiodarone as per protocol. Recommend replacing the patient's potassium which is being done 6. Cardiomyopathy with moderately reduced left ventricle ejection fraction. Continue Vasotec IV and Lasix. Later once the heart failure is better then would start the patient on Lopressor. 7. Bilateral pleural effusions left greater than right. Hopefully diuresing the patient will improve this situation. 8. History of hypertension: Continue Vasotec. Later would institute a long- acting metoprolol preparation or Coreg. 9. History of diabetes mellitus: Would watch the patient's blood sugar. Consider NG tube feeding for now until the patient is able to take p.o. 10. History of hyperlipidemia: At present we will hold off on the patient's statin. 11. Multiple CAD risk factors namely age, diabetes mellitus, hypertension, and hyperlipidemia. Later would recommend the patient have a IV Lexiscan Cardiolite versus cardiac catheterization. We will decide this later. 12. Personal interest for COVID infection. Await COVID19 testing done in this hospital. Note last week as per the patient's granddaughter the patient's COVID testing was said to be negative. More than 60 minutes spent on the patient. Medications reviewed. Medications adjusted. Medical regimen and management plan discussed with attending provider on the case. 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 Will follow
[2020-03-02] MEDS ORDERED: POTASSI CL 20 MEQ/50 ML RIDER 20 MEQ/50 ML RTUPB IV ONE (21:40)
[2020-03-02] MEDS: POTASSIUM CHLORIDE 10 MEQ TABLET.ER PO SCH (21:42)
[2020-03-02] MEDS ORDERED: POTASSIUM CHLORIDE 10 MEQ TABLET.ER PO ONE (21:49)
[2020-03-02] MEDS ORDERED: ENALAPRILAT DIHYDRATE INJ/PF 1.25 MG/1 ML SDV IV ONE (21:58)
[2020-03-02] MEDS: FUROSEMIDE INJ/PF 40 MG/4 ML SDV IV SCH (22:14)
[2020-03-02] MEDS: POTASSI CL 20 MEQ/50 ML RIDER 20 MEQ/50 ML RTUPB IV SCH ×2 (22:17→23:28)
[2020-03-03] MEDS: INSULIN REG, HUMAN 100 UNIT/ML 3 ML VIAL (PYX) SUBCUT SCH ×4 (04:53→21:28)
[2020-03-03] MEDS: ENALAPRILAT DIHYDRATE INJ/PF 1.25 MG/1 ML SDV IV SCH ×4 (04:53→21:28)
[2020-03-03] MEDS: NITROGLYCERIN 2% OINTMENT 1 GM PACKET TP SCH ×3 (05:00→18:07)
[2020-03-03] MEDS: PIPERACILLIN SODIUM/TAZOBACTAM 3.375 GM in NORMAL SALINE 100 ML IV SCH ×3 (05:32→18:09)
[2020-03-03] MEDS: HEPARIN SOD (PORCINE) 5,000 UNIT/ML 1 ML VIAL SUBCUT SCH ×3 (05:32→21:29)
[2020-03-03] MEDS: POTASSIUM CHLORIDE 10 MEQ TABLET.ER PO SCH (05:33)
[2020-03-03] MEDS: ACETAMINOPHEN 325 MG TABLET PO PRN (05:33)
[2020-03-03] MEDS: FUROSEMIDE INJ/PF 40 MG/4 ML SDV IV SCH ×3 (05:33→21:29)
[2020-03-03 07:30] LABS: ANION GAP 7 (5-19); BLOOD UREA NITROGEN 11 mg/dL (7-20); CALCIUM 8.3 mg/dL (8.4-10.2); CARBON DIOXIDE 29 mmol/L (22-30); CHLORIDE 101 mmol/L (98-107); GLUCOSE 168 mg/dL (75-110); POTASSIUM 3.4 mmol/L (3.6-5.0)
[2020-03-03 07:35] LABS: VANCOMYCIN,TROUGH < 5.0 ug/mL (5.0-20.0)
--- NOTE | 2020-03-03 08:29 | RADIOLOGY REPORT (SQ) ---
EXAM DESCRIPTION: CHEST SINGLE VIEW IMAGES COMPLETED DATE/TIME: 03/03/2020 5:46 am REASON FOR STUDY: Respiratory Failure COMPARISON: 03/02/2020 EXAM PARAMETERS: NUMBER OF VIEWS: One view. TECHNIQUE: Single frontal radiographic view of the chest acquired. RADIATION DOSE: NA LIMITATIONS: None. FINDINGS: LUNGS AND PLEURA: Stable [id number] veiling bilateral pleural effusions and associat ed basilar opacities, likely atelectasis. No pneumothorax. MEDIASTINUM AND HILAR STRUCTURES: Stable widening of the paratracheal stripe, likely vascular. HEART AND VASCULAR STRUCTURES: Enlarged, stable. Vascular calcifications. BONES: No acute findings. HARDWARE: Defibrillator pads overlie chest. OTHER: No other significant finding. IMPRESSION: Stable [id number] veiling bilateral effusions and associated basilar opacities, li patsy atelectasis. TECHNICAL DOCUMENTATION: JOB ID: [id number] 2010 [employer]- All Rights Reserved Reading location - IP/workstation name: [email or web address]
[2020-03-03] MEDS ORDERED: POTASSIUM CHLORIDE 20 MEQ PACKET PO ONE (08:30)
--- NOTE | 2020-03-03 08:32 | EKG REPORT ---
SEVERITY:- ABNORMAL ECG - SINUS TACHYCARDIA LEFT BUNDLE BRANCH BLOCK : Confirmed by: Parker Contreras MD 03-Mar-2020 08:31:14
[2020-03-03] MEDS: DEXTROSE 5%-WATER 500 ML with AMIODARONE HCL 900 MG IV PRN ×2 (08:55)
--- NOTE | 2020-03-03 11:52 | PDOC CRITICAL CARE PROG REPORT ---
General Date:: 03/03/20 ICU Day:: 2 Hospital Day:: 2 Resuscitation Status: Full Code Events in the past 12 to 24 Hours:: Extubated. AMI ruled out. Going on Milrinone Review of systems relevant to events:: CV Reason for ICU Addmission:: Respiratory failure, pneumonia, intubated. - Medications: Medications reviewed and adjusted accordingly: Yes Vasopressors:: None Sedation:: None Physical Exam Vital Signs: Temp Pulse Resp BP Pulse Ox 100.4 F 73 27 H 136/75 H 92 03/03/20 10:00 03/03/20 10:00 03/03/20 10:01 03/03/20 10:00 03/03/20 10:01 Intake & Output 03/02/20 03/03/20 03/04/20 06:59 06:59 06:59 Intake Total 1929 788 300 Output Total 2325 5475 1100 Balance -396 -4687 -800 Weight 74.6 kg 70.2 kg Weight/Height Weight 70.2 kg Height 5 ft General appearance: PRESENT: no acute distress, well-developed, well-nourished Head exam: PRESENT: atraumatic, normocephalic Eye exam: PRESENT: conjunctiva pink, EOMI, PERRLA. ABSENT: scleral icterus Ear exam: PRESENT: normal external ear exam Mouth exam: PRESENT: moist, tongue midline Respiratory exam: PRESENT: clear to auscultation michael, decreased breath sounds. ABSENT: rales, rhonchi, wheezes Cardiovascular exam: PRESENT: RRR. ABSENT: diastolic murmur, rubs, systolic murmur GI/Abdominal exam: PRESENT: normal bowel sounds, soft. ABSENT: distended, guarding, mass, organolmegaly, rebound, tenderness Rectal exam: PRESENT: deferred Gentrourinary exam: PRESENT: indwelling catheter Extremities exam: PRESENT: full ROM. ABSENT: calf tenderness, clubbing, pedal edema Musculoskeletal exam: PRESENT: normal inspection Neurological exam: PRESENT: alert, awake, oriented to person, oriented to place, oriented to time, oriented to situation, CN II-XII grossly intact, other - Mostly [place] speaking.. ABSENT: motor sensory deficit Psychiatric exam: PRESENT: appropriate affect, normal mood. ABSENT: homicidal ideation, suicidal ideation Skin exam: PRESENT: dry, intact, warm. ABSENT: cyanosis, rash Laboratory/Radiographs Laboratory Results: 03/02/20 04:20 03/03/20 06:05 03/02/20 03/02/20 03/02/20 13:12 14:57 19:30 Sodium 134.7 L 135.8 L Potassium 3.5 L 3.0 L* Chloride 104 101 Carbon Dioxide 24 30 Anion Gap 7 5 BUN 10 10 Creatinine 0.55 0.61 Est GFR ( Amer) > 60 > 60 Glucose 238 H 194 H Calcium 8.2 L 8.3 L Phosphorus 1.9 L Magnesium 2.2 C-Reactive Protein 85.9 H 03/03/20 06:05 Sodium 137.4 Potassium 3.4 L Chloride 101 Carbon Dioxide 29 Anion Gap 7 BUN 11 Creatinine 0.56 Est GFR ( Amer) > 60 Glucose 168 H Calcium 8.3 L Phosphorus Magnesium C-Reactive Protein 03/01/20 06:30 Tracheal Aspirate Gram Stain - Final 03/01/20 06:30 Tracheal Aspirate Sputum Culture - Final NORMAL LAYNE 02/29/20 02/29/20 03/01/20 21:49 21:59 05:07 Creatine Kinase 81 CK-MB (CK-2) 1.48 Troponin I < 0.012 NT-Pro-B Natriuret Pep 1230 H 3320 H 03/02/20 03/02/20 03/02/20 04:20 04:20 04:20 Creatine Kinase 157 H CK-MB (CK-2) 2.73 Troponin I 0.570 NT-Pro-B Natriuret Pep 5920 H 03/02/20 03/02/20 03/03/20 14:57 14:57 06:05 Creatine Kinase CK-MB (CK-2) Troponin I 0.415 0.419 NT-Pro-B Natriuret Pep 7330 H Impressions: Chest X-Ray 03/03/20 06:00 IMPRESSION: Stable [id number] veiling bilateral effusions and associated basilar opacities, likely atelectasis. All labs, radiographs, diagnostic studies and EKGs were personally reviewed: Yes In addition, reports of radiographic and diagnostic studies were read: Yes Assessment and Plan - Diagnosis (1) AMI anterior wall Is this a current diagnosis for this admission?: Yes Plan: Ruled out with echocardiogram and symptoms (2) Acute respiratory failure Qualifiers: Respiratory failure complication: hypoxia Qualified Code(s): J96.01 - Acute respiratory failure with hypoxia Is this a current diagnosis for this admission?: Yes Plan: Resolved. She has some effusions and likely an element of CHF. To start Milrinone by Dr. Mercedes (3) Ventricular tachycardia Is this a current diagnosis for this admission?: Yes Plan: No recurrence (4) Congestive heart failure with reduced left ventricular function, NYHA class 3 Is this a current diagnosis for this admission?: Yes Plan: Perhaps 3. Language barrier makes a full assesment impossible but the [facility] states she is mostly sedentary. ? out of choice or symptoms not known. Plan Summary: Start Milrinone and when off transfer to [facility]. Critical Time Critical Time (minutes): 35 Level of Care: ICU Anticipated discharge: Home with Homehealth Anticipated DC Timeframe: Other -: 1. The care of a critical patient is a dynamic process. 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 The timeframe for treatments given in order is not necessarily the actual time these treatments may have been done. 2. This patient requires critical care secondary to ongoing requirements for therapy not offered or safe outside the critical care environment. Transfer to a lower level of care will result in altered life or limb morbidity and mortality. 3. Multidisciplinary rounds completed. 4. ABCDE bundle addressed.
[2020-03-03] MEDS: MILRINONE LACTATE/D5W 20 MG/100 ML RTUINJ IV PRN ×2 (13:10→18:23)
[2020-03-03] MEDS ORDERED: POTASSIUM CHLORIDE 20 MEQ PACKET PO SCH (14:00)
[2020-03-03] MEDS ORDERED: EPINEPHRINE INJ 1 MG/10 ML DISP.SYRIN ONE (15:55)
--- NOTE | 2020-03-03 18:47 | Progress Note ---
Provider Note Provider Note: Cardiology PROGRESS NOTE by Dr. Hannah Vences on 03/03/2020. SUBJECTIVE: The patient is making improvement. She is less short of breath. She denies any chest pain discomfort. She has no PND orthopnea. She had no further ventricular tachycardia but is on the amiodarone. Her potassium was 3.4 and this is being replaced. There is no leg edema. She has been taken off of a stent and is on nasal cannula at 6 L. Chest x-ray shows improvement of the pleural effusions bilaterally. She has a good urine output. PHYSICAL EXAMINATION: The patient is a good build. In no acute distress. Selected Entries 03/03/20 12:16 Core 100.8 F H Temperature Heart Rate ( 87 Monitors) Respiratory 20 Rate Blood Pressure 120/76 Blood Pressure 90 Mean O2 Sat by Pulse 95 Oximetry Nasal cannula 6 L/min oxygen HEAD: Is atraumatic normocephalic. EYES: Pupils are equal round regular re active to light and accommodation. Extraocular movements are normal. There is no conjunctival pallor. EARS: Tympanic membranes are intact. External auditory canals are clear. NOSE: There is no deviated nasal septum. There is no inflammation nasal mucous membrane. MOUTH: Mucous membranes of mouth are moist. Tongue is moist. There is no ulcers. THROAT: There is no redness or oropharynx there is no exudates. SKIN: There is no skin rashes. There is no petechia or ecchymosis. There is no skin lesions. NECK: Is supple. There is JVD present. Carotids are equal there is no bruits. There is no lymphadenopathy. There is no goiter. There is no accessory muscle respiration use. Trachea central. LUNGS: There is absent breath sounds left greater than right basis. There is dullness in this areas. This area is there is tubular [bronchial] breath sounds. There is scattered rhonchi. There is no wheezing. Just above the area of dullness is a few bibasilar rales. HEART S1-S2 is heard. There is no S4 gallop. There is S3 gallop present. There is murmur of mild aortic stenosis. A2 is preserved. There is murmur of mitral regurgitation and tricuspid regurgitation present. There is no rub. ABDOMEN: Soft. Nontender there is no paraspinal megaly. Bowel sounds are well heard. EXTREMITIES: Femorals are well felt. Leg pulses well felt. There is no femoral bruits. There is no cyanosis or clubbing. There is no pedal edema. There is no DVT or cellulitis. HYDRAULIC JACK ADJUSTER: Patient is conscious awake alert seems to be oriented x3 although language is a barrier. She has no focal deficits. PSYCHIATRIC: The patient does appear to be slightly anxious but does not appear to be agitated. Chest X-Ray 02/29/20 21:55 IMPRESSION: Right pleural effusion with bilateral opacities consistent with edema and/or pneumonia. Differential diagnosis would include viral infections. Chest X-Ray 03/01/20 06:00 IMPRESSION: IMPROVED AERATION. Chest X-Ray 03/02/20 06:00 IMPRESSION: STABLE APPEARANCE OF THE CHEST. SUPPORT DEVICES UNCHANGED. Chest X-Ray 03/03/20 06:00 IMPRESSION: Stable [id number] veiling bilateral effusions and associated basilar opacities, likely atelectasis. Labs- All tests 24 hr 03/01/20 03/02/20 03/02/20 10:30 19:30 23:36 Sodium 135.8 L Potassium 3.0 L* Chloride 101 Carbon Dioxide 30 Anion Gap 5 BUN 10 Creatinine 0.61 Est GFR ( Amer) > 60 Est GFR (MDRD) Non-Af > 60 Glucose 194 H POC Glucose 163 H Calcium 8.3 L Phosphorus 1.9 L Magnesium 2.2 Troponin I Time Trough Drawn Vancomycin Trough COVID-19 Source NASOPHARYNGEAL COVID-19 (JIMMY) NOT DETECTED 03/03/20 03/03/20 03/03/20 04:39 06:05 06:05 Sodium 137.4 Potassium 3.4 L Chloride 101 Carbon Dioxide 29 Anion Gap 7 BUN 11 Creatinine 0.56 Est GFR ( Amer) > 60 Est GFR (MDRD) Non-Af > 60 Glucose 168 H POC Glucose 164 H Calcium 8.3 L Phosphorus Magnesium Troponin I Time Trough Drawn 0605 Vancomycin Trough < 5.0 L COVID-19 Source COVID-19 (JIMMY) 03/03/20 03/03/20 03/03/20 06:05 08:51 14:32 Sodium Potassium Chloride Carbon Dioxide Anion Gap BUN Creatinine Est GFR ( Amer) Est GFR (MDRD) Non-Af Glucose POC Glucose 146 H 146 H Calcium Phosphorus Magnesium Troponin I 0.419 Time Trough Drawn Vancomycin Trough COVID-19 Source COVID-19 (JIMMY) The patient's intake output since admission to ICU. On 03/01/2020 the patient's 24-hour intake was 2000 final 71 mL output was 670 mL. On 03/02/2020:The patient's 24-hour intake is 1926 mL. Output is 2325 mL. On 03/03/2020 the patient's 24-hour intake is 888 and output is 5475 mL IMPRESSION/RECOMMENDATION: 1. Elevated troponin. This is trending down. No definite evidence of acute coronary syndrome or non-ST elevation OK. The troponin elevation is most likely secondary to supply demand mismatch due to patient's respiratory failure and heart failure. 2. Acute respiratory failure secondary to pneumonia and congestive heart failure. Note the patient was intubated and has been extubated this morning but still appears to be in some degree of respiratory distress. Continue current treatment including supplemental oxygen antibiotics. 3. Bilateral pneumona continue antibiotics. 4. 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 Would recommend IV Lasix, continue the patient on topical nitrates daily changed to Nitropaste 2% at 1 inch every 6 hours. Would add IV Vasotec. He would hold off on the metoprolol at present and later on started on metoprolol. The patient also was given 1 dose of IV digoxin 0.25 mg. Would stop the patient's IV fluids at 125 mL/h which is running. 5. Nonsustained ventricular tachycardia: Most likely secondary to hypokalemia in a patient with cardiomyopathy. At present continue IV amiodarone as per protocol. Recommend replacing the patient's potassium which is being done no recurrence once potassium has been replenished. 6. Cardiomyopathy with moderately reduced left ventricle ejection fraction. Continue Vasotec IV and Lasix. Later once the heart failure is better then would start the patient on Lopressor. 7. Moderate to severe pulmonary hypertension: We will start the patient on milrinone. 8. Moderate to severe mitral regurgitation: Continue current treatment. Including afterload reduction and diuretics. And also continue nitrates topically. 9. Bilateral pleural effusions left greater than right. Hopefully diuresing the patient will improve this situation. 10. History of hypertension: Continue Vasotec. Later would institute a long-acting metoprolol preparation or Coreg. 11. History of diabetes mellitus: Would watch the patient's blood sugar. Consider NG tube feeding for now until the patient is able to take p.o. 12. History of hyperlipidemia: At present we will hold off on the patient's statin. 13. Multiple CAD risk factors namely age, diabetes mellitus, hypertension, and hyperlipidemia. Later would recommend the patient have a IV Lexiscan Cardiolite versus cardiac catheterization. We will decide this later. 14. Personal interest for COVID infection. Await COVID19 testing done in this hospital. Note last week as per the patient's granddaughter the patient's COVID testing was said to be negative. Daughter got some records from the patient's primary care physician at [facility]. Not much help with the information we got. More than 45 minutes spent on the patient. Medications reviewed. Medications adjusted. Medical regimen and management plan discussed with attending provider on the case. [The validation leader in this case] medical decision making is of high complexity. Will follow
[2020-03-03] MEDS ORDERED: MORPHINE SULFATE 10 MG/ML INJ ONE (19:09)
[2020-03-03] MEDS ORDERED: POTASSI CL 20 MEQ/50 ML RIDER 20 MEQ/50 ML RTUPB IV ONE ×2 (19:12→21:24)
[2020-03-03] MEDS ORDERED: MAGNESIUM SULFATE/D5W 1 GM/100 ML RTUPB IV ONE (19:16)
[2020-03-03 19:43] LABS: ABSOLUTE BASOPHILS # (AUTO) 0.1 10^3/uL (0.0-0.2); ABSOLUTE LYMPHOCYTES (AUTO) 1.6 10^3/uL (0.5-4.7); ABSOLUTE MONOCYTES (AUTO) 0.9 10^3/uL (0.1-1.4); BASOPHILS % (AUTO) 0.6 % (0-2); EOSINOPHILS % (AUTO) 0.3 % (0-6); HEMATOCRIT 44.6 % (36.0-47.0); LYMPHOCYTES % (AUTO) 11.8 % (13-45); MEAN CORPUSCULAR HGB CONC 33.6 g/dL (32.0-36.0); MEAN CORPUSCULAR VOLUME 89 fl (80-97); MONOCYTES % (AUTO) 6.5 % (3-13); PLATELET COUNT 196 10^3/uL (150-450); RED CELL DISTRIBUTION WIDTH 12.9 % (11.5-14.0); SEGMENTED NEUTROPHILS % (AUTO) 80.8 % (42-78); TOTAL CELLS COUNTED % (AUTO) 100 %; WHITE BLOOD COUNT 13.6 10^3/uL (4.0-10.5)
--- NOTE | 2020-03-03 20:13 | RADIOLOGY REPORT (SQ) ---
EXAM DESCRIPTION: CLINICAL HISTORY: 84 years Female CODE SITUATION COMPARISON: 03/03/2020 5:47 AM FINDINGS: Cardiac size appears unchanged. Central pulmonary vascular congestion and pulmonary infiltrates. Bilateral pleural effusions. No definite pneumothorax. Defibrillator pad over the central chest limits evaluation. IMPRESSION: Findings most consistent with pulmonary edema with bilateral effusions similar to the previous
[2020-03-03 21:04] LABS: ANION GAP 11 (5-19); BLOOD UREA NITROGEN 13 mg/dL (7-20); CALCIUM 8.1 mg/dL (8.4-10.2); CARBON DIOXIDE 27 mmol/L (22-30); CHLORIDE 100 mmol/L (98-107); GLUCOSE 215 mg/dL (75-110); POTASSIUM 3.1 mmol/L (3.6-5.0)
--- NOTE | 2020-03-03 21:46 | EKG REPORT ---
SEVERITY:- ABNORMAL ECG - SINUS RHYTHM REPOL ABNRM SUGGESTS ISCHEMIA, DIFFUSE LEADS BORDERLINE PROLONGED QT INTERVAL : Confirmed by: Parker Contreras MD 03-Mar-2020 21:46:06
[2020-03-03] MEDS: POTASSI CL 20 MEQ/50 ML RIDER 20 MEQ/50 ML RTUPB IV SCH (21:48)
[2020-03-03 22:17] LABS: ARTERIAL BLOOD BASE EXCESS 6.5 mmol/L; ARTERIAL BLOOD H2CO3 1.14 mmol/L (1.05-1.35); ARTERIAL BLOOD HCO3 29.8 mmol/L (20-24); ARTERIAL BLOOD O2 SATURATION 92.6 % (94-98); ARTERIAL BLOOD PCO2 37.9 mmHg (35-45); ARTERIAL BLOOD PH 7.51 (7.35-7.45); ARTERIAL BLOOD PO2 57.9 mmHg (80-100); ARTERIAL BLOOD TOTAL CO2 30.9 mmol/L (21-25)
[2020-03-03 22:20] LABS: ARTERIAL BLOOD FIO2 100%
[2020-03-04] MEDS: NITROGLYCERIN 2% OINTMENT 1 GM PACKET TP SCH ×2 (00:40→05:27)
[2020-03-04] MEDS: PIPERACILLIN SODIUM/TAZOBACTAM 3.375 GM in NORMAL SALINE 100 ML IV SCH ×3 (00:41→12:59)
[2020-03-04] MEDS: POTASSI CL 20 MEQ/50 ML RIDER 20 MEQ/50 ML RTUPB IV SCH (00:41)
[2020-03-04] MEDS: INSULIN REG, HUMAN 100 UNIT/ML 3 ML VIAL (PYX) SUBCUT SCH ×2 (03:56→08:21)
[2020-03-04] MEDS: ENALAPRILAT DIHYDRATE INJ/PF 1.25 MG/1 ML SDV IV SCH ×3 (03:56→09:10)
[2020-03-04] MEDS: HEPARIN SOD (PORCINE) 5,000 UNIT/ML 1 ML VIAL SUBCUT SCH (05:26)
[2020-03-04 06:46] LABS: ANION GAP 7 (5-19); BLOOD UREA NITROGEN 16 mg/dL (7-20); CARBON DIOXIDE 27 mmol/L (22-30); CHLORIDE 105 mmol/L (98-107); GLUCOSE 163 mg/dL (75-110); POTASSIUM 3.9 mmol/L (3.6-5.0)
[2020-03-04 06:48] LABS: ABSOLUTE BASOPHILS # (AUTO) 0.1 10^3/uL (0.0-0.2); ABSOLUTE LYMPHOCYTES (AUTO) 1.3 10^3/uL (0.5-4.7); ABSOLUTE MONOCYTES (AUTO) 0.9 10^3/uL (0.1-1.4); ABSOLUTE NEUT (AUTO) 9.5 10^3/uL (1.7-8.2); BASOPHILS % (AUTO) 0.5 % (0-2); EOSINOPHILS % (AUTO) 0.2 % (0-6); HEMATOCRIT 40.6 % (36.0-47.0); HEMOGLOBIN 13.7 g/dL (12.0-15.5); MEAN CORPUSCULAR HEMOGLOBIN 30.7 pg (27.0-33.4); MEAN CORPUSCULAR HGB CONC 33.8 g/dL (32.0-36.0); MEAN CORPUSCULAR VOLUME 91 fl (80-97); MONOCYTES % (AUTO) 7.4 % (3-13); RED BLOOD COUNT 4.47 10^6/uL (3.72-5.28); RED CELL DISTRIBUTION WIDTH 13.5 % (11.5-14.0); SEGMENTED NEUTROPHILS % (AUTO) 80.9 % (42-78); TOTAL CELLS COUNTED % (AUTO) 100 %; WHITE BLOOD COUNT 11.7 10^3/uL (4.0-10.5)
[2020-03-04 07:24] LABS: PLATELET COUNT 170 10^3/uL (150-450)
--- NOTE | 2020-03-04 07:34 | EKG REPORT ---
SEVERITY:- ABNORMAL ECG - SINUS RHYTHM NONSUSTAINED VENT. TACHYCARDIA BORDERLINE LEFT AXIS DEVIATION REPOLARIZATION ABNORMALITY, PROB RATE RELATED QTC PROLONGED 597 MS. CHECK MEDICATIONS !! : Confirmed by: Parker Contreras MD 04-Mar-2020 07:33:35
--- NOTE | 2020-03-04 08:45 | RADIOLOGY REPORT (SQ) ---
EXAM DESCRIPTION: CHEST SINGLE VIEW IMAGES COMPLETED DATE/TIME: 03/04/2020 5:41 am REASON FOR STUDY: Respiratory Failure COMPARISON: 03/03/2020 EXAM PARAMETERS: NUMBER OF VIEWS: One view. TECHNIQUE: Single frontal radiographic view of the chest acquired. RADIATION DOSE: NA LIMITATIONS: None. FINDINGS: LUNGS AND PLEURA: Essentially stable pulmonary exam demonstrating layering pleural effusio ns. No new focal consolidation. No pneumothorax. MEDIASTINUM AND HILAR STRUCTURES: Stable. HEART AND VASCULAR STRUCTURES: Stable. BONES: No acute findings. HARDWARE: None in the chest. OTHER: No other significant finding. IMPRESSION: Stable radiographic appearance of the chest. No evidence of adverse trend. TECHNICAL DOCUMENTATION: JOB ID: [id number] 2010 [employer]- All Rights Reserved Reading location - IP/workstation name: [email or web address]
[2020-03-04] MEDS ORDERED: DEXMEDETOMIDINE IN 0.9 % NACL 400 MCG/100 ML RTUPB IV ONE (10:03)
[2020-03-04 10:06] LABS: ARTERIAL BLOOD BASE EXCESS -6.7 mmol/L; ARTERIAL BLOOD H2CO3 1.15 mmol/L (1.05-1.35); ARTERIAL BLOOD HCO3 18.8 mmol/L (20-24); ARTERIAL BLOOD O2 SATURATION 86.1 % (94-98); ARTERIAL BLOOD PCO2 38.2 mmHg (35-45); ARTERIAL BLOOD PH 7.31 (7.35-7.45); ARTERIAL BLOOD PO2 55.1 mmHg (80-100)
[2020-03-04 10:08] LABS: ARTERIAL BLOOD FIO2 100%
--- NOTE | 2020-03-04 10:22 | RADIOLOGY REPORT (SQ) ---
EXAM DESCRIPTION: CHEST SINGLE VIEW IMAGES COMPLETED DATE/TIME: 03/04/2020 10:09 am REASON FOR STUDY: ET Tube Placement COMPARISON: 03/04/2020 EXAM PARAMETERS: NUMBER OF VIEWS: One view. TECHNIQUE: Single frontal radiographic view of the chest acquired. RADIATION DOSE: NA LIMITATIONS: None. FINDINGS: LUNGS AND PLEURA: Stable pulmonary exam demonstrating layering bilateral pleural effusions . No pneumothorax. MEDIASTINUM AND HILAR STRUCTURES: Stable. HEART AND VASCULAR STRUCTURES: Stable. BONES: No acute findings. HARDWARE: Interval placement of an endotracheal tube, terminating 2 cm cranial to the aminah and an e nteric tube terminating subdiaphragmatically out of the imaged field of view. OTHER: No other significant finding. IMPRESSION: Interval placement of enteric and endotracheal tubes without evidence of complication. Otherwise stable radiographic appearance of the chest. TECHNICAL DOCUMENTATION: JOB ID: [id number] 2010 [email or web address]- All Rights Reserved Reading location - IP/workstation name: [email or web address]
--- NOTE | 2020-03-04 10:25 | XCELERA REPORT ---
[address] [address] Transthoracic Echocardiogram Report Name: ALPHONSE JARAMILLO Age: 84 yrs Gender: Female : 1935 Patient Status: Inpatient Patient Location: ICU^604^A Study Date: 03/02/2020 04:09 PM Weight: 159 lb Procedure: A two-dimensional transthoracic echocardiogram with color flow and Doppler was performed. Study Quality: Fair. Reason For Study: Anterior wall MA/ CHF History: Anterior wall MA / CHF. Ordering Physician: LON RANDLE Performed By: Inez Romero Interpretation Summary The left ventricle is borderline dilated. There is mild to moderate concentric left ventricular hypertrophy. LV EF is 35% to 40% Left ventricular systolic function is moderately reduced. Doppler measurements suggest impaired left ventricular relaxation, which is associated with grade I/IV or mild diastolic dysfunction There is in the setting of global hypokinesis there is increased hypokinesis of the IV septum in the LV apex. There is no thrombus. No ASD ,VSD,or PFO seen. The right ventricle is not well visualized secondary to technical limitations Possible mild RV dilatation. The right atrium is normal. The left atrial size is normal. There is no evidence of mitral valve prolapse. There is no vegetation seen on the mitral valve. There is no mitral valve stenosis. There is a moderate to severe amount of mitral regurgitation There is no aortic valvular vegetation. There is mild aortic stenosis There is a peak gradient of Peak Gradient of 22.8 amd mean gradient of 12.7 mm of Hg. There is no LVOT obstruction. No aortic regurgitation is present. There is no tricuspid stenosis. There is a moderate amount of tricuspid regurgitation There is moderate to severe pulmonary hypertension by echo RVSP is 58 to 63 mm of Hg , with RA mean of 15 to 20. There is no pulmonic valvular stenosis. There is a mild amount of pulmonic regurgitation The aortic root is normal size. The inferior vena cava appeared dilated and decreased < 50% with respiration (RAP 15-20 mmHg) There is no pericardial effusion. Left > right moderate pleural effusion. MMode/2D Measurements & Calculations RVDd: 2.9 cm LVIDd: 4.5 cm FS: 27.4 % Ao root diam: 2.4 cm IVSd: 1.3 cm LVIDs: 3.2 cm EDV(Teich): 91.1 ml LVPWd: 1.4 cm ESV(Teich): 42.4 ml Ao root area: 4.5 cm2 EF(Teich): 53.4 % LA dimension: 3.8 cm LVOT diam: 1.4 cm LVOT area: 1.6 cm2 Doppler Measurements & Calculations MV E max kadie: MV P1/2t max kadie: Ao V2 max: LV V1 max P.5 cm/sec 153.5 cm/sec 238.9 cm/sec 5.6 mmHg MV A max kadie: MV P1/2t: 60.7 msec Ao max PG: LV V1 mean P.2 cm/sec 22.8 mmHg 3.0 mmHg MV E/A: 1.1 MVA(P1/2t): 3.6 cm2 Ao V2 mean: LV V1 max: MV dec slope: 162.3 cm/sec 118.5 cm/sec 741.3 cm/sec2 Ao mean PG: LV V1 mean: MV dec time: 0.21 sec 12.7 mmHg 77.0 cm/sec Ao V2 VTI: 45.7 cm LV V1 VTI: 19.4 cm CASPER(I,D): 0.66 cm2 CASPER(V,D): 0.77 cm2 SV(LVOT): 30.3 ml PA V2 max: PI end-d kadie: TR max kadie: 90.3 cm/sec 120.5 cm/sec 326.9 cm/sec PA max P.3 mmHg TR max P.7 mmHg MV P1/2t-pr_phl: 60.7 msec Left Ventricle The left ventricle is borderline dilated. There is mild to moderate concentric left ventricular hypertrophy. LV EF is 35% to 40%. Left ventricular systolic function is moderately reduced. Doppler measurements suggest impaired left ventricular relaxation, which is associated with grade I/IV or mild diastolic dysfunction. There is in the setting of global hypokinesis there is increased hypokinesis of the IV septum in the LV apex. There is no thrombus. No ASD ,VSD,or PFO seen. Right Ventricle The right ventricle is not well visualized secondary to technical limitations. Possible mild RV dilatation. Atria The right atrium is normal. The left atrial size is normal. Mitral Valve There is no evidence of mitral valve prolapse. There is no vegetation seen on the mitral valve. There is no mitral valve stenosis. There is a moderate to severe amount of mitral regurgitation. Aortic Valve There is no aortic valvular vegetation. There is mild aortic stenosis. There is a peak gradient of Peak Gradient of 22.8 amd mean gradient of 12.7 mm of Hg. There is no LVOT obstruction. No aortic regurgitation is present. Tricuspid Valve There is no tricuspid stenosis. There is a moderate amount of tricuspid regurgitation. There is moderate to severe pulmonary hypertension by echo. RVSP is 58 to 63 mm of Hg , with RA mean of 15 to 20. Pulmonic Valve There is no pulmonic valvular stenosis. There is a mild amount of pulmonic regurgitation. Great Vessels The aortic root is normal size. The inferior vena cava appeared dilated and decreased < 50% with respiration (RAP 15-20 mmHg). Effusions There is no pericardial effusion. Left > right moderate pleural effusion. : LON RANDLE Shyamal
--- NOTE | 2020-03-04 10:37 | EKG REPORT ---
SEVERITY:- ABNORMAL ECG - SINUS TACHYCARDIA REPOL ABNRM SUGGESTS ISCHEMIA, ANT-LAT LEADS NONSPECIFIC INTRAVENTRICULAR CONDUCTION DELAY : Confirmed by: Parker Contreras MD 04-Mar-2020 10:36:23
[2020-03-04] MEDS ORDERED: NITROGLYCERIN/D5W 50 MG/250 ML RTUINJ IV PRN (10:55)
[2020-03-04] MEDS ORDERED: PHENYLEPHRINE HCL INJ/PF 10 MG/1 ML SDV ONE (11:10)
[2020-03-04] MEDS ORDERED: DEXTROSE 5%-WATER 250 ML with PHENYLEPHRINE HCL 40 MG IV PRN ×2 (11:11)
[2020-03-04] MEDS ORDERED: RINGERS SOLUTION,LACTATED 250 ML IV ONE (11:30)
--- NOTE | 2020-03-04 11:43 | PDOC TRANSFER SUMMARY ---
General Admission Date/PCP: 03/01/20 01:08 Resuscitation Status: Full Code - Transfer Diagnosis (1) Acute respiratory failure Is this a current diagnosis for this admission?: Yes Diagnosis Summary: This was assumed to be hypoxic and was done in the field. She is now re- intubated after VF arrest largely for airway protection. (2) AMI anterior wall Is this a current diagnosis for this admission?: Yes Diagnosis Summary: This was a consideration but this has not been borne out in subsequent cardiology evaluations. (3) Ventricular tachycardia Is this a current diagnosis for this admission?: Yes Diagnosis Summary: This has been recurent desite a normal potassium level and magnesium. She has broken through an amiodarone drip and lidocaine boluses. (4) Congestive heart failure with reduced left ventricular function, NYHA class 3 Is this a current diagnosis for this admission?: Yes Diagnosis Summary: EF by echo 40-45% no previous one for comparison. (5) Ventricular fibrillation Is this a current diagnosis for this admission?: Yes Diagnosis Summary: She has not had VF until this AM when she had another episode of VT which de generated to coars VF followed fairly quickly before she could be cardioverted at 300J once. - Transfer Medications Home Medications: Insulin Glargine,Hum.rec.anlog [Lantus Insulin Inj 300 Unit/3 ml Pen] 36 unit SUBCUT QHS 07/20/17 Lisinopril/Hydrochlorothiazide [Lisinopril-Hctz 20-12.5 mg Tab] 1 tab PO DAILY 07/20/17 Sitagliptin Phos/Metformin HCl [Janumet Xr 100-1,000 mg Tablet] 1 tab PO DAILY 07/20/17 Transfer Medications: Current Medications Acetaminophen (Tylenol 325 Mg Tablet) 650 mg PO Q4HP PRN PRN Reason: FEVER >101 Stop: 04/01/20 18:16 Last Admin: 03/03/20 05:33 Dose: 650 mg Documented by: Albuterol/Ipratropium (Duoneb 3 Ml Ampul) 3 ml NEB RTQ6HP PRN PRN Reason: SHORTNESS OF BREATH Stop: 03/31/20 01:59 Aspirin (Aspirin 325 Mg Tablet) 325 mg PO NOW ONE Stop: 03/04/20 12:01 Dextrose (Dextrose Inj 50% Syringe (25 Gm/50 Ml)) 12.5 gm IV PRN PRN; Protocol PRN Reason: FOR BG 50-69 IN ALERT PATIENT Stop: 03/31/20 01:59 Dextrose (Dextrose Inj 50% Syringe (25 Gm/50 Ml)) 25 gm IV PRN PRN; Protocol PRN Reason: See Label Comments Stop: 03/31/20 01:59 Enalaprilat (Vasotec Inj/Pf 1.25 Mg/1 Ml Sdv) 2.5 mg IV Q6A [facility] Stop: 04/02/20 02:59 Last Admin: 03/04/20 08:29 Dose: Not Given Documented by: Enoxaparin Sodium (Lovenox Inj 80 Mg/0.8 Ml Disp.Syrin) 65 mg SUBCUT Q12 [facility] Stop: 04/03/20 11:59 Glucagon (Glucagen Inj 1 Mg Vial) 1 mg IM PRN PRN; Protocol PRN Reason: Evaluate for BG < 70 Stop: 03/31/20 02:57 Glucose (Glutose 40% Gel 15 Gm Tube) 15 gm PO PRN PRN; Protocol PRN Reason: For BG 50-69 in Alert Patient Stop: 03/31/20 01:59 Glucose (Glutose 40% Gel 15 Gm Tube) 30 gm PO PRN PRN; Protocol PRN Reason: FOR BG < 50 IN ALERT PATIENT Stop: 03/31/20 01:59 Sodium Chloride (Nacl 0.9% 1000 Ml Iv Soln) 2,160 mls @ 0 mls/hr IV CONTINUOUS PRN PRN Reason: THIS MED IS NOT "PRN" Stop: 03/30/20 22:12 Last Infusion: 03/01/20 00:32 Dose: Infused Documented by: Piperacillin Sod/Tazobactam (Sod 3.375 gm/ Sodium Chloride) 100 mls @ 200 mls/hr IV Q6 [facility] Stop: 03/08/20 05:59 Last Admin: 03/04/20 05:26 Dose: 200 mls/hr, 200 mls/hr Documented by: Amiodarone HCl 900 mg/ (Dextrose) 500 mls @ 0 mls/hr IV CONTINUOUS PRN; Protocol PRN Reason: THIS MED IS NOT "PRN" Stop: 03/05/20 09:14 Last Admin: 03/03/20 08:55 Dose: 0.5 mg/min, 16.67 mls/hr Documented by: Nitroglycerin/Dextrose (Ntg Rtu 50 Mg/D5w 250 Ml Iv Premix Bottle) 50 mg in 250 mls @ 0 mls/hr IV CONTINUOUS PRN; Protocol PRN Reason: THIS MED IS NOT "PRN" Stop: 04/03/20 10:54 Hard Fat/Phenylephrine 40 mg/ (Dextrose) 254 mls @ 0 mls/hr IV CONTINUOUS PRN; Protocol PRN Reason: THIS MED IS NOT "PRN" Stop: 04/03/20 11:10 Insulin Human Regular (Humulin R (Pyxis) Insulin 100 Unit/Ml 3ml) 0 - 12 unit S UBCUT Q6A MEG; Protocol Stop: 03/31/20 08:59 Last Admin: 03/04/20 08:21 Dose: Not Given Documented by: Metoprolol Tartrate (Lopressor Inj/Pf 5 Mg/5 Ml Sdv) 5 mg IV Q3HP PRN PRN Reason: HR > 100 Stop: 04/01/20 14:13 Sodium Chloride (Saline Flush 2.5 Ml Monoject Prefil Syrin) 2.5 ml IV Q8 [facility] Stop: 03/30/20 21:59 Last Admin: 03/04/20 05:22 Dose: Not Given Documented by: Sodium Chloride (Saline Flush 2.5 Ml Monoject Prefil Syrin) 2.5 ml IV Q8 [facility] Stop: 03/31/20 05:59 Last Admin: 03/04/20 05:22 Dose: Not Given Documented by: - Allergies Allergies/Adverse Reactions: No Known Allergies Allergy (Unverified 07/20/17 02:39) - Diet/Activity Discharge Diet: Other (Comments) - NPO again, just intubated. Discharge Activity: Bedrest - While intubated Hospital Course Hospital Course: This patient most Guatemalan speaking came to the ED after being intubated at home for 'low sats' and was cardioverted once for an unknow rythym. She was extubated and did well within 24 hours. How ever on the night of 03/03 she had multiple episodes of VT and spontaneously converted. The runs were brief. She had a recurrence then a degeneration to VF coarse to fine quickly. Cardoverted once. Intubated for airway protection. She needs an EP study and likely a chemical premanent cardioversion. AICD placed as well. She speaks little Faroese and trish dubose is the Faroese speaking contact. She is accepted at [facility] by Dr. Tara Redman. Physical Exam Vital Signs: Temp Pulse Resp BP Pulse Ox 100.4 F 69 20 100/89 H 89 L 03/04/20 08:00 03/04/20 08:00 03/04/20 08:00 03/04/20 08:29 03/04/20 09:50 Intake & Output 03/03/20 03/04/20 03/05/20 06:59 06:59 06:59 Intake Total 888 914 Output Total 5475 3310 35 Balance -4587 -2396 -35 Weight 70.2 kg 68.2 kg General appearance: PRESENT: no acute distress Head exam: PRESENT: atraumatic, normocephalic Eye exam: PRESENT: conjunctiva pink, EOMI, PERRLA. ABSENT: scleral icterus Ear exam: PRESENT: normal external ear exam Mouth exam: PRESENT: moist, tongue midline Teeth exam: PRESENT: dental caries, poor dentation Respiratory exam: PRESENT: clear to auscultation michael, other - Increased AP diameter consistent with COPD. ABSENT: rales, rhonchi, wheezes Cardiovascular exam: PRESENT: other - Currently no ectopy. Vascular exam: PRESENT: normal capillary refill GI/Abdominal exam: PRESENT: normal bowel sounds, soft. ABSENT: distended, g uarding, mass, organolmegaly, rebound, tenderness Rectal exam: PRESENT: deferred Gentrourinary exam: PRESENT: indwelling catheter Extremities exam: PRESENT: full ROM. ABSENT: calf tenderness, clubbing, pedal edema Musculoskeletal exam: PRESENT: normal inspection Neurological exam: PRESENT: altered, other - Sedated with precedex Skin exam: PRESENT: dry, intact, warm. ABSENT: cyanosis, rash Results Laboratory Results: 03/04/20 06:15 03/04/20 06:15 03/03/20 03/03/20 03/03/20 19:21 19:21 19:21 WBC 13.6 H RBC 5.00 Hgb 15.0 Hct 44.6 MCV 89 MCH 30.0 MCHC 33.6 RDW 12.9 Plt Count 196 Seg Neutrophils % 80.8 H Carbonic Acid HCO3/H2CO3 Ratio ABG pH ABG pCO2 ABG pO2 ABG HCO3 ABG O2 Saturation ABG Base Excess FiO2 Sodium Cancelled Potassium Cancelled Chloride Cancelled Carbon Dioxide Cancelled Anion Gap Cancelled BUN Cancelled Creatinine Cancelled Est GFR ( Amer) Cancelled Est GFR (Non-Af Amer) Cancelled Glucose Cancelled Calcium Cancelled Phosphorus Cancelled Magnesium Cancelled 03/03/20 03/03/20 03/03/20 20:02 20:02 22:06 WBC RBC Hgb Hct MCV MCH MCHC RDW Plt Count Seg Neutrophils % Carbonic Acid 1.14 HCO3/H2CO3 Ratio 26:1 ABG pH 7.51 H ABG pCO2 37.9 ABG pO2 57.9 L ABG HCO3 29.8 H ABG O2 Saturation 92.6 L ABG Base Excess 6.5 FiO2 100% Sodium 137.6 Potassium 3.1 L Chloride 100 Carbon Dioxide 27 Anion Gap 11 BUN 13 Creatinine 0.62 Est GFR ( Amer) > 60 Est GFR (Non-Af Amer) Glucose 215 H Calcium 8.2 L 8.1 L Phosphorus 3.0 Magnesium 2.3 03/04/20 03/04/20 03/04/20 06:15 06:15 09:55 WBC 11.7 H RBC 4.47 Hgb 13.7 Hct 40.6 MCV 91 MCH 30.7 MCHC 33.8 RDW 13.5 Plt Count 170 Seg Neutrophils % 80.9 H Carbonic Acid 1.15 HCO3/H2CO3 Ratio 16:1 ABG pH 7.31 L ABG pCO2 38.2 ABG pO2 55.1 L ABG HCO3 18.8 L ABG O2 Saturation 86.1 L ABG Base Excess -6.7 FiO2 100% Sodium 138.7 Potassium 3.9 Chloride 105 Carbon Dioxide 27 Anion Gap 7 BUN 16 Creatinine 0.63 Est GFR ( Amer) > 60 Est GFR (Non-Af Amer) Glucose 163 H Calcium 8.0 L Phosphorus Magnesium 03/01/20 06:30 Tracheal Aspirate Gram Stain - Final 03/01/20 06:30 Tracheal Aspirate Sputum Culture - Final NORMAL LAYNE 02/29/20 02/29/20 03/01/20 21:49 21:59 05:07 Creatine Kinase 81 CK-MB (CK-2) 1.48 Troponin I < 0.012 NT-Pro-B Natriuret Pep 1230 H 3320 H 03/02/20 03/02/20 03/02/20 04:20 04:20 04:20 Creatine Kinase 157 H CK-MB (CK-2) 2.73 Troponin I 0.570 NT-Pro-B Natriuret Pep 5920 H 03/02/20 03/02/20 03/03/20 14:57 14:57 06:05 Creatine Kinase CK-MB (CK-2) Troponin I 0.415 0.419 NT-Pro-B Natriuret Pep 7330 H 03/03/20 03/04/20 20:02 06:15 Creatine Kinase CK-MB (CK-2) Troponin I 0.264 0.229 NT-Pro-B Natriuret Pep EKG Comments: Currently SR-SB with no ectopy Impressions: Chest X-Ray 03/04/20 09:59 IMPRESSION: Interval placement of enteric and endotracheal tubes without evidence of complication. Otherwise stable radiographic appearance of the chest. Plan Discharge Plan: Transfer to [facility] for EP study and managment
[2020-03-04] MEDS ORDERED: ASPIRIN 325 MG TABLET PO ONE (12:00)
[2020-03-04] MEDS ORDERED: ENOXAPARIN SODIUM INJ 80 MG/0.8 ML DISP.SYRIN SUBCUT SCH (12:00)
[2020-03-04 12:17] VITALS: BP 115/74
--- NOTE | 2020-03-04 12:33 | Progress Note ---
Provider Note Provider Note: CARDIOLOGY CRITICAL CARE PROGRESS NOTE by Dr. Hannah Kasper on 03/04/2020. 75 minutes of critical care time spent on this patient. SUBJECTIVE: Last evening the patient had a run of nonsustained ventricular tachycardia on the amiodarone drip and had a brief CPR which did not require DC shock. She subsequently was found to have a low potassium which was replenished. As per the nurses the patient has been having some short episodes of nonsustained ventricular tachycardia with the patient being asymptomatic at that time. This morning the patient had another run of ventricular tachycardia, at this time the potassium and magnesium were normal. The patient had full- blown ventricular tachycardia requiring CPR and the patient is intubated. The patient was not complaining of chest pain or discomfort. Initially her blood pressure was stable and I had discussed with Dr. Browning and Dr. Pacheco of [facility] and arrange for transfer. In the interim the patient dropped her blood pressure to the 60s. The patient was given a bolus of Ringer's lactate 250 mL and the patient was started on Shaun-Synephrine Shaun- Synephrine. The Shaun-Synephrine was dialed up to 160 mcg/min at which time her blood pressure came up to 117/74 and subsequently 126/74 with a heart rate of 67 bpm. At present on amiodarone no further ectopy noted. I had updated Dr. Pacheco about the patient's hypotension and that the patient is on inotropes at present. PHYSICAL EXAMINATION: The patient is well-built she is intubated and sedated. Selected Entries 03/04/20 03/04/20 03/04/20 10:26 10:40 10:41 Core 99.7 F 99.7 F Temperature Heart Rate ( 114 81 Monitors) Respiratory 36 H Rate Blood Pressure 158/97 H 115/66 Blood Pressure 117 82 Mean O2 Sat by Pulse 93 Oximetry Patient on a mechanical ventilator with FiO2 100% Premature 0 Ventricular Counted Beats Arrhythmia Sinu Rhythm Status ST Lead II -1.5 03/04/20 03/04/20 11:02 11:36 12:15 PM Core 99.9 F 100.4 F Temperature Heart Rate ( 82 57 Monitors) 67 Respiratory 39 H 28 H Rate Blood Pressure 68/47 L 70/49 L 126/74 Blood Pressure 54 56 Mean O2 Sat by Pulse 95 97 Oximetry Premature Ventricular Counted Beats Arrhythmia Rhythm Status ST Lead II HEAD: Is atraumatic normocephalic. EYES: Pupils are equal round regular reactive to light and accommodation. Extraocular movements are normal. There is no conjunctival pallor. EARS: Tympanic membranes are intact. External auditory canals are clear. NOSE: There is no deviated nasal septum. There is no inflammation nasal mucous membrane. MOUTH: Mucous membranes of mouth are moist. Tongue is moist. There is no ulcers. THROAT: There is no redness or oropharynx there is no exudates. SKIN: There is no skin rashes. There is no petechia or ecchymosis. There is no skin lesions. NECK: Is supple. There is JVD present. Carotids are equal there is no bruits. There is no lymphadenopathy. There is no goiter. There is no accessory muscle respiration use. Trachea central. LUNGS: There is absent breath sounds in the right base, and a small area in the left base. Saline rate there is dullness in this areas. This area is there is tubular [bronchial] breath sounds in the right base. There is scattered rhonchi. There is no wheezing. Just above the area of dullness is a few bibasilar rales. HEART S1-S2 is heard. There is no S4 gallop. There is S3 gallop present. There is murmur of mild aortic stenosis. A2 is preserved. There is murmur of mitral regurgitation and tricuspid regurgitation present. There is no rub. ABDOMEN: Soft. Nontender there is no paraspinal megaly. Bowel sounds are well heard. EXTREMITIES: Femorals are well felt. Leg pulses well felt. There is no femoral bruits. There is no cyanosis or clubbing. There is no pedal edema. There is no DVT or cellulitis. [employer] and psychiatric exams not done due to the patient being intubated and sedated. The patient's 24-hour intake is 914 mL. 24-hour output is 3210 mL. Labs- All tests 24 hr 03/01/20 03/03/20 03/03/20 10:30 14:32 19:21 WBC RBC Hgb Hct MCV MCH MCHC RDW Plt Count Lymph % (Auto) Jack % (Auto) Eos % (Auto) Baso % (Auto) Absolute Neuts (auto) Absolute Lymphs (auto) Absolute Monos (auto) Absolute Eos (auto) Absolute Basos (auto) Seg Neutrophils % Carbonic Acid HCO3/H2CO3 Ratio ABG pH ABG pCO2 ABG pO2 ABG HCO3 ABG Total CO2 ABG O2 Saturation ABG Base Excess FiO2 Sodium Cancelled Potassium Cancelled Chloride Cancelled Carbon Dioxide Cancelled Anion Gap Cancelled BUN Cancelled Creatinine Cancelled Est GFR ( Amer) Cancelled Est GFR (Non-Af Amer) Cancelled Est GFR (MDRD) Non-Af Cancelled Glucose Cancelled POC Glucose 146 H Calcium Cancelled Phosphorus Magnesium Cancelled Troponin I EGFR Cancelled COVID-19 Source NASOPHARYNGEAL COVID-19 (JIMMY) NOT DETECTED 03/03/20 03/03/20 03/03/20 19:21 19:21 20:02 WBC 13.6 H RBC 5.00 Hgb 15.0 Hct 44.6 MCV 89 MCH 30.0 MCHC 33.6 RDW 12.9 Plt Count 196 Lymph % (Auto) 11.8 L Jack % (Auto) 6.5 Eos % (Auto) 0.3 Baso % (Auto) 0.6 Absolute Neuts (auto) 11.0 H Absolute Lymphs (auto) 1.6 Absolute Monos (auto) 0.9 Absolute Eos (auto) 0.0 Absolute Basos (auto) 0.1 Seg Neutrophils % 80.8 H Carbonic Acid HCO3/H2CO3 Ratio ABG pH ABG pCO2 ABG pO2 ABG HCO3 ABG Total CO2 ABG O2 Saturation ABG Base Excess FiO2 Sodium Potassium Chloride Carbon Dioxide Anion Gap BUN Creatinine Est GFR ( Amer) Est GFR (Non-Af Amer) Est GFR (MDRD) Non-Af Glucose POC Glucose Calcium Phosphorus Cancelled Magnesium Troponin I 0.264 EGFR COVID-19 Source COVID-19 (JIMMY) 03/03/20 03/03/20 03/03/20 20:02 20:02 20:26 WBC RBC Hgb Hct MCV MCH MCHC RDW Plt Count Lymph % (Auto) Jack % (Auto) Eos % (Auto) Baso % (Auto) Absolute Neuts (auto) Absolute Lymphs (auto) Absolute Monos (auto) Absolute Eos (auto) Absolute Basos (auto) Seg Neutrophils % Carbonic Acid HCO3/H2CO3 Ratio ABG pH ABG pCO2 ABG pO2 ABG HCO3 ABG Total CO2 ABG O2 Saturation ABG Base Excess FiO2 Sodium 137.6 Potassium 3.1 L Chloride 100 Carbon Dioxide 27 Anion Gap 11 BUN 13 Creatinine 0.62 Est GFR ( Amer) > 60 Est GFR (Non-Af Amer) Est GFR (MDRD) Non-Af > 60 Glucose 215 H POC Glucose 181 H Calcium 8.2 L 8.1 L Phosphorus 3.0 Magnesium 2.3 Troponin I EGFR COVID-19 Source COVID-19 (JIMMY) 03/03/20 03/04/20 03/04/20 22:06 03:52 06:15 WBC RBC Hgb Hct MCV MCH MCHC RDW Plt Count Lymph % (Auto) Jack % (Auto) Eos % (Auto) Baso % (Auto) Absolute Neuts (auto) Absolute Lymphs (auto) Absolute Monos (auto) Absolute Eos (auto) Absolute Basos (auto) Seg Neutrophils % Carbonic Acid 1.14 HCO3/H2CO3 Ratio 26:1 ABG pH 7.51 H ABG pCO2 37.9 ABG pO2 57.9 L ABG HCO3 29.8 H ABG Total CO2 30.9 H ABG O2 Saturation 92.6 L ABG Base Excess 6.5 FiO2 100% Sodium Potassium Chloride Carbon Dioxide Anion Gap BUN Creatinine Est GFR ( Amer) Est GFR (Non-Af Amer) Est GFR (MDRD) Non-Af Glucose POC Glucose 162 H Calcium Phosphorus Magnesium Troponin I 0.229 EGFR COVID-19 Source COVID-19 (JIMMY) 03/04/20 03/04/20 03/04/20 06:15 06:15 08:20 WBC 11.7 H RBC 4.47 Hgb 13.7 Hct 40.6 MCV 91 MCH 30.7 MCHC 33.8 RDW 13.5 Plt Count 170 Lymph % (Auto) 11.0 L Jack % (Auto) 7.4 Eos % (Auto) 0.2 Baso % (Auto) 0.5 Absolute Neuts (auto) 9.5 H Absolute Lymphs (auto) 1.3 Absolute Monos (auto) 0.9 Absolute Eos (auto) 0.0 Absolute Basos (auto) 0.1 Seg Neutrophils % 80.9 H Carbonic Acid HCO3/H2CO3 Ratio ABG pH ABG pCO2 ABG pO2 ABG HCO3 ABG Total CO2 ABG O2 Saturation ABG Base Excess FiO2 Sodium 138.7 Potassium 3.9 Chloride 105 Carbon Dioxide 27 Anion Gap 7 BUN 16 Creatinine 0.63 Est GFR ( Amer) > 60 Est GFR (Non-Af Amer) Est GFR (MDRD) Non-Af > 60 Glucose 163 H POC Glucose 148 H Calcium 8.0 L Phosphorus Magnesium Troponin I EGFR COVID-19 Source COVID-19 (JIMMY) 03/04/20 09:55 WBC RBC Hgb Hct MCV MCH MCHC RDW Plt Count Lymph % (Auto) Jack % (Auto) Eos % (Auto) Baso % (Auto) Absolute Neuts (auto) Absolute Lymphs (auto) Absolute Monos (auto) Absolute Eos (auto) Absolute Basos (auto) Seg Neutrophils % Carbonic Acid 1.15 HCO3/H2CO3 Ratio 16:1 ABG pH 7.31 L ABG pCO2 38.2 ABG pO2 55.1 L ABG HCO3 18.8 L ABG Total CO2 20.0 L ABG O2 Saturation 86.1 L ABG Base Excess -6.7 FiO2 100% Sodium Potassium Chloride Carbon Dioxide Anion Gap BUN Creatinine Est GFR ( Amer) Est GFR (Non-Af Amer) Est GFR (MDRD) Non-Af Glucose POC Glucose Calcium Phosphorus Magnesium Troponin I EGFR COVID-19 Source COVID-19 (JIMMY) 03/01/20 10:30 COVID-19 (JIMMY) NOT DETECTED Chest X-Ray 02/29/20 21:55 IMPRESSION: Right pleural effusion with bilateral opacities consistent with edema and/or pneumonia. Differential diagnosis would include viral infections. Chest X-Ray 03/01/20 06:00 IMPRESSION: IMPROVED AERATION. Chest X-Ray 03/02/20 06:00 IMPRESSION: STABLE APPEARANCE OF THE CHEST. SUPPORT DEVICES UNCHANGED. Chest X-Ray 03/03/20 06:00 IMPRESSION: Stable [id number] veiling bilateral effusions and associated basilar opacities, likely atelectasis. Chest X-Ray 03/03/20 19:25 IMPRESSION: Findings most consistent with pulmonary edema with bilateral effusions similar to the previous Chest X-Ray 03/04/20 06:00 IMPRESSION: Stable radiographic appearance of the chest. No evidence of adverse trend. Chest X-Ray 03/04/20 09:59 IMPRESSION: Interval placement of enteric and endotracheal tubes without evide nce of complication. Otherwise stable radiographic appearance of the chest. EKG #1: STMT - * SINUS RHYTHM - STMT - * NONSUSTAINED VENT. TACHYCARDIA [MARCIAL] . BORDERLINE LEFT AXIS DEVIATION [REPRR] . REPOLARIZATION ABNORMALITY, PROB RATE RELATED - STMT - * QTC PROLONGED EKG #2: SINUS TACHYCARDIA [REPIAL] . REPOL ABNRM SUGGESTS ISCHEMIA, ANT-LAT LEADS [NIVCD] * NONSPECIFIC INTRAVENTRICULAR CONDUCTION DELAY EKG #3: SINUS RHYTHM [PLAA] . PROBABLE LEFT ATRIAL ABNORMALITY [REPPAL] . REPOL ABNRM, PROBABLE ISCHEMIA, ANT-LAT LEADS [LQT] . PROLONGED QT INTERVAL IMPRESSION/RECOMMENDATION: 1. Cardiac arrest secondary to ventricular tachycardia. 2. Runs of nonsustained ventricular tachycardia which subsequently became sustained and the patient had to have CPR and is now intubated. 3. Hypotension: The patient's blood pressure and required 160 mcg of Shaun- Synephrine per minute to bring her blood pressure up to reasonable levels. 4. Abnormal EKG: Shows ischemic T wave changes in anterior leads. The patient left bundle branch block is not there anymore and the QRS is of of nonspecific IVCD. The patient's elevated troponin is trending down. High suspicion that the patient has underlying coronary artery disease causing secondary ventricular tachycardia secondary to ischemia. Patient would benefit from cardiac catheterization. We will start the patient on Lovenox 1 mg/kg subcutaneously every 12 hours. 5. Acute respiratory failure secondary to pneumonia and congestive heart failure. Note the patient was intubated and has been extubated this morning but still appears to be in some degree of respiratory distress. Continue current treatment including supplemental oxygen antibiotics. 6. Bilateral pneumona continue antibiotics. This seems to be improving 7. 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 Due to her blood pressure being low and requiring inotropes to bring her blood pressure up, the patient's nitroglycerin, and IV Vasotec has been held. 8. Cardiomyopathy with moderately reduced left ventricle ejection fraction. Continue Vasotec IV and Lasix. Later once the heart failure is better then would start the patient on Lopressor. 9. Moderate to severe pulmonary hypertension: We will start the patient on milrinone. 10. Moderate to severe mitral regurgitation: Continue current treatment. Including afterload reduction and diuretics. And also continue nitrates topically. 11. Bilateral pleural effusions left greater than right. On today's chest x- ray the left pleural effusion is very minimal. And the right pleural effusion seems to be much less than before. 12. History of hypertension: Continue Vasotec. Later would institute a long- acting metoprolol preparation or Coreg. 13. History of diabetes mellitus: Would watch the patient's blood sugar. Consider NG tube feeding for now until the patient is able to take p.o. 14. History of hyperlipidemia: At present we will hold off on the patient's statin. 15. Multiple CAD risk factors namely age, diabetes mellitus, hypertension, and hyperlipidemia. Later would recommend the patient have a IV Lexiscan Cardiolite versus cardiac catheterization. We will decide this later. 16. Patient COVID test came back negative. This is the second time that the patient has been negative. The first negative covid -test was about a week ago. Medications reviewed. 70 minutes of critical care given was at the bedside more than 90% of the time. Medications adjusted. Medical decision making is of high complexity. Discussed with cuff setter lockstitch here and the cuff setter lockstitch Dr. Pacheco at [place]. Earlier had discussed the case with Dr. Browning the cardiolog ist who accepted the patient. The patient's daughter and granddaughter are here. Discussed the clinical events and the patient's clinical situation with the patient's daughter and granddaughter. The patient being transferred to [facility] patient's family is aware of the benefits and risks and complications of the transfer.
[2020-03-04] MEDS ORDERED: DEXMEDETOMIDINE IN NS 400 MCG/100 ML RTUPB IV PRN (12:48)
[2020-03-04] MEDS: DEXTROSE 5%-WATER 500 ML with AMIODARONE HCL 900 MG IV PRN ×2 (12:55)
--- NOTE | 2020-03-04 18:20 | EKG REPORT ---
SEVERITY:- ABNORMAL ECG - SINUS RHYTHM PROBABLE LEFT ATRIAL ABNORMALITY REPOL ABNRM, PROBABLE ISCHEMIA, ANT-LAT LEADS PROLONGED QT INTERVAL : Confirmed by: Parker Contreras MD 04-Mar-2020 18:20:01
--- NOTE | 2020-03-06 11:30 | Operative Report ---
Bedside Procedure - History of Present Illness History of Present Illness: 84-year-old female with a history of HTN who recently presented to an outside hospital emergency department and diagnosed with pneumonia. Screened for COVID at that time. Patient developed worsening shortness of breath this evening. EMS was called and she was subsequently intubated for severe respiratory distress. CXR in ED shows diffuse infiltrates consistent with a viral pattern. She is now being admitted to the intensive care unit for management of her respiratory failure. COVID-19 screen is still currently pending and patient will be placed on airborne precautions. Indication for Procedure: Mental status after cardiac arrest Date: 03/04/20 Provider: LON RANDLE - Intubation Orotracheal Time of Intubation: 10:00 Airway evaluation: Normal anatomy Mallampati Classification: Class 1 Medications: Etomidate Intubation method: Orotracheal Blade type: Myra Blade size: 4 Equipment used: Other ETT size: 7.5 ETT secured at: Lips ETT secured at (cm): 25 Post Intubation Xray: Yes Intubation Complications: No complications
--- NOTE | 2020-03-06 11:31 | Progress Note ---
Provider Note Provider Note: CC time at discharge > 35 minutes
--- NOTE | 2020-03-06 11:34 | Progress Note ---
Provider Note Provider Note: Patient arrested on 03/04/20 in a Prolonged VT episode that degenerated to coarse than fin VF ACLS protocol followed and pt quickly regained BP and pulse. Total CC time 45 minutes.
== END 2020-03-04 13:55 | disposition short-term general hospital (02) | DRG 208 ==
LOC: ER 21:41 → EH 03-01 01:08 → ICU 03-01 02:00
PROVIDERS: ADMIT Anesthesiology; ATTEND Anesthesiology
PROC: 5A1945Z Respiratory Ventilation, 24-96 Consecutive Hours (ICD-10-PCS; principal; 2020-03-01)
PROC: 0BH17EZ Insertion of Endotracheal Airway into Trachea, Via Natural or Artificial Opening (ICD-10-PCS; 2020-03-01)
DX: J96.01 Acute respiratory failure with hypoxia (principal); I49.01 Ventricular fibrillation; I50.41 Acute combined systolic (congestive) and diastolic (congestive) heart failure; J18.9 Pneumonia, unspecified organism; I47.2 Ventricular tachycardia; I43 Cardiomyopathy in diseases classified elsewhere; I27.20 Pulmonary hypertension, unspecified; I11.0 Hypertensive heart disease with heart failure; E87.6 Hypokalemia; E78.5 Hyperlipidemia, unspecified; E11.9 Type 2 diabetes mellitus without complications; K21.9 Gastro-esophageal reflux disease without esophagitis; M19.90 Unspecified osteoarthritis, unspecified site; Z20.828 Contact with and (suspected) exposure to other viral communicable diseases; J96.02 Acute respiratory failure with hypercapnia; I34.0 Nonrheumatic mitral (valve) insufficiency; R79.89 Other specified abnormal findings of blood chemistry; Z79.82 Long term (current) use of aspirin; Z79.4 Long term (current) use of insulin; Z79.899 Other long term (current) drug therapy
CPT/HCPCS: 31500; 36415; 71045; 80048; 80053; 80202; 81001; 82310; 82550; 82553; 82803; 82962; 83605; 83735; 83880; 84100; 84484; 85025; 85027; 85610; 86140; 87040; 87070; 87205; 87635; 92950; 93005; 93010; 93306; 94002; 94003; 94660; 96361; 96365; 99238; 99291; C9803; J0171; J0282; J1160; J1644; J1650; J1815; J1940; J2250; J2260; J2270; J2370; J2543; J2704; J3370; J3475; J3480; J3490; J7030; J7050; J7060; J7120